=== PATIENT | female | born 1970 | race Caucasian/White ===

== ENCOUNTER 2017-03-15 16:35 | Emergency (ER) | payer BC ==
[2017-03-15 17:00] VITALS: BP 145/71; PULSE 73; RESP 16; TEMP 98.2
[2017-03-15] MEDS ORDERED: CEPHALEXIN 500MG STARTER PACK 4 CAP BTL PO STA (17:36)
--- NOTE | 2017-03-15 17:37 | ED ---
Wound/Laceration HPI - General Chief Complaint: Wound/Laceration Stated Complaint: left index finger injury Time Seen by Provider: 03/15/17 17:24 Source: patient, RN notes reviewed, old records reviewed Mode of arrival: ambulatory Limitations: no limitations - History of Present Illness Initial Comments: This is a 46 year old female, with CC left index finger swelling. PT states she was opening a box on friday when she slipped and cut her finger, and since there has been swelling worsening pain with redness traveling up her hand. She reports that the cut was very superficial, but thinks there is now an infection within the finger. She reports she has full range of motion. Denies any peripheral paresthesias. She denies any fever or chills. - Related Data Previous Rx's Medication Instructions Recorded Cephalexin [Keflex] 500 mg PO Q6H #40 cap 03/15/17 Allergies Allergy/AdvReac Type Severity Reaction Status Date / Time No Known Allergies Allergy Verified 03/15/17 17:00 Review of Systems ROS Statement: Those systems with pertinent positive or pertinent negative responses have been documented in the HPI. ROS Other: All systems not noted in ROS Statement are negative. Past Medical History Past Medical History: No Reported History Additional Past Medical History / Comment(s): currently has fluid around heart, Acute T6 herpes zoster lesion 09/12/2015 left side-shingles currently healed, steroids September 2015 History of Any Multi-Drug Resistant Organisms: None Reported Past Surgical History: Section, Hysterectomy Additional Past Surgical History / Comment(s): knee surgery,wisdom teeth, pericardial centesis Past Anesthesia/Blood Transfusion Reactions: No Reported Reaction Additional Past Anesthesia/Blood Transfusion Reaction / Comment(s): no hx blood transfusion Past Psychological History: No Psychological Hx Reported Smoking Status: Current every day smoker Past Alcohol Use History: Rare Past Drug Use History: None Reported - Past Family History Father Family Medical History: COPD Additional Family Medical History / Comment(s): SCLERADERMA,EMPHYSEMA, GOUT Mother Family Medical History: Diabetes Mellitus, Hypertension, Osteoarthritis (OA), Rheumatoid Arthritis (RA) Additional Family Medical History / Comment(s): Pericarditis Sister(s) Additional Family Medical History / Comment(s): GRAVES DISEASE AND HER SON HAS ADDISONS DISEASE General Exam - General Exam Comments Initial Comments: Well appearing 46 year old female, no distress. Limitations: no limitations General appearance: alert Head exam: Present: atraumatic, normocephalic, normal inspection Eye exam: Present: normal appearance, PERRL, EOMI. Absent: scleral icterus, conjunctival injection, periorbital swelling ENT exam: Present: normal exam, mucous membranes moist Neck exam: Present: normal inspection. Absent: tenderness, meningismus, lymphadenopathy Respiratory exam: Present: normal lung sounds bilaterally. Absent: respiratory distress, wheezes, rales, rhonchi, stridor Cardiovascular Exam: Present: regular rate, normal rhythm, normal heart sounds. Absent: systolic murmur, diastolic murmur, rubs, gallop, clicks GI/Abdominal exam: Present: soft, normal bowel sounds. Absent: distended, tenderness, guarding, rebound, rigid Extremities exam: Present: normal inspection, full ROM, normal capillary refill. Absent: tenderness, pedal edema, joint swelling, calf tenderness Left Upper Arm exam: Present: normal inspection, full ROM Elbow exam: Present: normal inspection, full ROM Forearm Wrist exam: Present: normal inspection, full ROM Hand Wrist exam: Present: tenderness, swelling, erythema (tender, swelling and erythema from index finger. Superifical laceration that is closed and well healed. Patient has some minor lymphangitic streaking up hand and forearm. ). Absent: normal inspection Neuro motor exam: Present: wrist extension intact, thumb opposition intact, thumb IP flexion intact, thumb adduction intact, fingers 2-5 abduction intact Vascular: Present: normal capillary refill Back exam: Present: normal inspection Neurological exam: Present: alert, oriented X3, CN II-XII intact Psychiatric exam: Present: normal affect, normal mood Skin exam: Present: warm, dry, intact, normal color. Absent: rash Course Vital Signs 03/15/17 16:57 Temperature 98.2 F Pulse Rate 73 Respiratory 16 Rate Blood Pressure 145/71 O2 Sat by Pulse 99 Oximetry Medical Decision Making - Medical Decision Making This is a 46 year old female, with CC left index finger swelling. PT states she was opening a box on friday when she slipped and cut her finger, and since there has been swelling worsening pain with redness traveling up her hand. She reports that the cut was very superficial, but thinks there is now an infection within the finger.Patient appears to have cellulitis of left index finger and evidence lymphangitis. Patient will be dsicharged with antibiotic, and follow up with PCP. REturn parameters discussed. Disposition Clinical Impression: Cellulitis of left index finger, Lymphangitis Disposition: HOME SELF-CARE Condition: Good Instructions: Lymphangitis (ED) Additional Instructions: Patient advised to follow-up with her primary care provider. Take antibiotic as prescribed. Return to emergency department if any alarming signs symptoms currently including severe swelling into the finger or the hand. Don't miss a dose of antibiotic. Prescriptions: Cephalexin [Keflex] 500 mg PO Q6H #40 cap Referrals: Aline Gomes MD [Primary Care Provider] - 1-2 days Time of Disposition: 17:35
--- NOTE | 2017-03-18 05:26 | CDI ---
Documentation Clarification OP Dear Karen Mortensen PA-C Please do addendum to ED report that provides Need ER H &P,Physical Exam Thank you, Marifer Mitchell Diesel Powerplant Mechanic If you have any questions, please contact [employer] at [phone] [facility]
== END 2017-03-15 17:44 | disposition home or self-care (01) ==
LOC: EC 16:35
DX: L03.012 Cellulitis of left finger (principal); S61.211S Laceration without foreign body of left index finger without damage to nail, sequela; F17.200 Nicotine dependence, unspecified, uncomplicated; W45.8XXS Other foreign body or object entering through skin, sequela
CPT/HCPCS: 99283

== ENCOUNTER → 2017-04-04 | Outpatient (CLI) | payer BC ==
--- NOTE | 2017-04-04 10:54 | MM ---
Reason for exam: clinical finding. Last mammogram was performed 2 years and 3 months ago. History: Family history of breast cancer in maternal aunt and breast cancer in maternal cousin. Physical Findings: Nurse did not find any significant physical abnormalities on exam. MG 3D Diag Mammo W/Cad KEVEN Bilateral CC and MLO view(s) were taken. Prior study comparison: December 19, 2014, bilateral MG diagnostic mammo w CAD KEVEN. The breast tissue is heterogeneously dense. This may lower the sensitivity of mammography. Finding: There is a suspicious, equal, spiculated architectural distortion located 5 cm from the nipple in the anterior position of the left breast. New finding since December 19, 2014. These results were verbally communicated with the patient and result sheet given to the patient on 04/04/17. ASSESSMENT: Incomplete: need additional imaging evaluation, BI-RAD 0 RECOMMENDATION: Ultrasound of the left breast.
--- NOTE | 2017-04-04 10:56 | USB ---
Reason for exam: additional evaluation requested from abnormal screening. History: Family history of breast cancer in maternal aunt and breast cancer in maternal cousin. US Breast Limited LT Left breast ultrasound demonstrates a 1.2 x 1.7 x 0.8cm irregular, spiculated, taller than wide, solid, hypoechoic, vascular lesion at 12 o'clock at dimpling. These results were verbally communicated with the patient and result sheet given to the patient on 04/04/17. ASSESSMENT: Highly suggestive of malignancy, BI-RAD 5 RECOMMENDATION: Surgical consultation and ultrasound core biopsy of the left breast. Called Dr. Gomes with mammographic findings and has scheduled an appointment for the patient for 04/04/17 at 10:[address] Estes. Biopsy scheduled for 04/09/17 at 12:20. PRELIMINARY REPORT CALLED AND FAXED TO DR. ESTES ON 04/04/17.
== END | disposition home or self-care (01) ==
LOC: RADMAMWWP 08:46
PROVIDERS: ATTEND Family Medicine
DX: R92.8 Other abnormal and inconclusive findings on diagnostic imaging of breast (principal); R92.2 Inconclusive mammogram
CPT/HCPCS: 76642; G0204; G0279

== ENCOUNTER → 2017-04-09 | Day surgery (SDC) | payer BC ==
[2017-04-09 12:22] VITALS: RESP 16; BMI 41.1
[2017-04-09 13:45] VITALS: BP 117/78; PULSE 62; TEMP 97.7
--- NOTE | 2017-04-09 14:13 | USB ---
EXAMINATION TYPE: US biopsy breast VAD LT, MG diagnostic mammo LT wo CAD DATE OF EXAM: 04/09/2017 CLINICAL HISTORY: R92.8 Abn mammogram and ultrasound. TECHNIQUE: Ultrasound guided core biopsy of left breast with clip placement and follow-up two-view mammogram. COMPARISON: Left breast mammogram and ultrasound April 04, 2017 and older mammograms. FINDINGS: The procedure of ultrasound guided core biopsy was explained to the patient. Benefits, alternatives, and risks were discussed. An informed consent was then obtained. The patient was placed in supine positioning for imaging and for the procedure. Preprocedure imaging redemonstrates irregular shadowing hypoechoic lesion 12:00 position in left breast. I had technologist scan axillary region to assess for possible second biopsy, no suspicious adenopathy is seen. Benign appearing lymph nodes are identified. The overlying skin was prepped and draped in usual sterile fashion. Lidocaine was used as anesthetic into the skin. Lidocaine with epinephrine is used as anesthetic into the deeper tissue up to area of concern in the left breast. Under ultrasound guidance, a 12-gauge vacuum assisted biopsy gun device was used to obtain 4 core samples. Following this, a biopsy clip was left in lesion. The patient tolerated the procedure well without any immediate complication. The patient was kept in the radiology department for short stay after the procedure and then discharged home in stable condition. Postprocedure mammogram shows clip appeared to correspond to area of mammogram concern, spiculated lesion is less well-seen without 3-D imaging. IMPRESSION: Successful, uncomplicated ultrasound guided core biopsy of area of concern in the left breast, full pathology results to follow. Very high index of suspicion noted at time of procedure. 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 SEE SURGICAL PATHOLOGY CANCER CASE SUMMARY Recommendation Surgical consult of the left breast. ADRIEN
== END ==
LOC: RADUSWWP 12:05
PROVIDERS: ATTEND Surgery
DX: D05.12 Intraductal carcinoma in situ of left breast (principal)
CPT/HCPCS: 88305; 19083; G0206; A4648; J2001

== ENCOUNTER 2017-06-03 09:56 | Day surgery (SDC) | payer BC ==
[2017-05-30 09:30] VITALS: BMI 41.1
[~2017-06-03 09:56] MED LIST: ALPRAZolam 0.5 MG TAB PO PRN; DEXAMETHASONE SOD PHOSPHATE 10 MG/ML 1 ML VIAL IV ONE; HEPARIN SODIUM,PORCINE 5,000 UNIT/ML 1 ML VIAL SQ ONE; LACTATED RINGERS 1,000 ML IV SCH; ONDANSETRON 4 MG/2 ML VIAL IVP ONE; Pre Op ABX Message 1 EACH MISC MISCELLANE ONE
[2017-06-03] MEDS ORDERED: ALPRAZolam 0.5 MG TAB PO ONE (10:40)
[2017-06-03] MEDS: LACTATED RINGERS 1,000 ML IV SCH ×2 (10:40→21:27)
[2017-06-03] MEDS ORDERED: LIDOCAINE 1% INJ 10MG/ML (20 ML MDV) SQ ONE (11:28)
[2017-06-03] MEDS ORDERED: SODIUM BICARB 4% 5 ML VIAL (0.48 MEQ/ML) MISCELLANE ONE (11:49)
[2017-06-03] MEDS ORDERED: HEPARIN SODIUM,PORCINE 5,000 UNIT/ML 1 ML VIAL SQ ONE (13:59)
--- NOTE | 2017-06-03 14:02 | NM ---
EXAMINATION TYPE: NM sentinel node injection DATE OF EXAM: 06/03/2017 COMPARISON: 04/09/2017 and 04/04/2017 HISTORY: 46 year-old female with biopsy-proven left breast cancer TECHNIQUE AND FINDINGS: The procedure of sentinel lymph node injection was explained to the patient. The benefits, alternatives, and risks were discussed. An informed consent was then obtained. Overlying skin is cleaned with sterile alcohol. Lidocaine buffered with bicarbonate was used as anes thetic into the skin and subcutaneous tissue surrounding the nipple. Following this, 539 uCi Tc 99m Filtered Sulfur Colloid was injected into 4 equivalent doses at 12, 3, 6, and 9:00 position surroundi ng the left nipple intradermally. The injection sites were massaged by nuclear reactor operator for 10 minutes after injection. T he patient tolerated the procedure well without any immediate complication. The patient was kept in the radiology department for short stay after the procedure and then taken to surgery for surgical pr ocedure what is presumed intraoperative gamma probe will be used for sentinel lymph node detection. IMPRESSION: Left breast radiotracer injection for sentinel node localization as above.
[2017-06-03] MEDS ORDERED: fentaNYL (PF) 50 MCG/ML 2 ML AMP ONE (14:34)
[2017-06-03] MEDS ORDERED: HYDROmorphone (PF) 1 MG/ML ONE (14:34)
[2017-06-03] MEDS ORDERED: ceFAZolin 1,000 MG VIAL ONE (14:34)
[2017-06-03] MEDS ORDERED: LIDOCAINE 1% INJ 10MG/ML (20 ML MDV) ONE (14:34)
[2017-06-03] MEDS ORDERED: PROPOFOL 10 MG/ML 20 ML VIAL IV ONE (14:34)
[2017-06-03] MEDS ORDERED: SUCCINYLCHOLINE CHLORIDE 100 MG/5 ML SYR IV ONE (14:34)
[2017-06-03] MEDS ORDERED: MIDAZOLAM 2 MG/2 ML VIAL ONE (14:34)
[2017-06-03] MEDS ORDERED: SODIUM CHLORIDE 0.9% 50 ML with ceFAZolin 2,000 MG IV ONE ×2 (14:51)
[2017-06-03] MEDS ORDERED: LACTATED RINGERS 1,000 ML IV ONE (15:33)
[2017-06-03] MEDS ORDERED: METHYLENE BLUE 10 MG/ML (10 ML VIAL) INJ ONE (15:38)
--- NOTE | 2017-06-03 17:04 | MM ---
EXAMINATION TYPE: MG pre op needle loc LT, MG surgical specimen LT DATE OF EXAM: 06/03/2017 COMPARISON: 04/04/2017 CLINICAL HISTORY: 46 year-old female with biopsy-proven left breast cancer TECHNIQUE: Needle localization with wire placement and surgical excision of area of concern in the left breast. FINDINGS: The procedure of needle localization with wire placement and than surgical excision was explained to the patient. Benefits, alternatives, and risks were discussed. An informed consent was then obtained. The shortest pathway for procedure was chosen. Shortest pathway was a superior approach. The overlying skin was prepped and draped in usual sterile fashion. Lidocaine was used as anesthetic into the skin and subcutaneous tissue up to the level of area of concern. A 7 cm Kopans needle was used. It was placed via a superior approach under mammographic guidance. Subsequent 90 degrees mammogram show the needle to be in satisfactory position relative to the targeted area. At this point, wire was placed and the needle was withdrawn. The wire was fixed to patient's skin. Images were marked for surgeon. The patient tolerated the procedure well without any immediate complication. The patient was kept in the radiology department for short stay after the procedure and then taken to surgery for surgical excision. The wire, targeted microclip, and some associated density are identified in specimen mammogram. The patient was kept in hospital for short stay after the procedure and then discharged home in stable condition. IMPRESSION: Successful, uncomplicated needle localization with wire placement and surgical excision of biopsy-proven left breast cancer. Full pathology results to follow. Pathology Results: Malignant A. 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 DCIS AND INVASIVE CARCINOMA CLOSELY APPROXIMATE THE MEDIAL MARGIN, CANNOT EXCLUDE INVOLVEMENT OF THE MARGIN. SEE SURGICAL PATHOLOGY CANCER CASE SUMMARY AND COMMENT. B. BREAST, LEFT, EXTERNAL MEDIAL MARGIN, EXCISION: BENIGN BREAST WITH FIBROCYSTIC CHANGES. C. BREAST, LEFT, NEW INFERIOR MARGIN, EXCISION: BENIGN BREAST WITH FIBROCYSTIC CHANGES. D. SENTINEL LYMPH NODE #1, BIOPSY: LYMPH NODE POSITIVE FOR METASTASIS. SIZE OF METASTATIC DEPOSIT MEASURES 7 MM. E. SENTINEL LYMPH NODE #2, BIOPSY: LYMPH NODE POSITIVE FOR METASTASIS. SIZE OF METASTATIC DEPOSIT MEASURES 5 MM. F. SENTINEL LYMPH NODE #3, BIOPSY: LYMPH NODE NEGATIVE FOR METASTASIS. CK7 AND BOAZ IMMUNOPEROXIDASE STAINS ARE CONFIRMATORY (CONTROLS APPROPRIATE). G. SENTINEL LYMPH NODE #4, BIOPSY: TWO LYMPH NODES NEGATIVE FOR METASTASIS. CK7 AND BOAZ IMMUNOPEROXIDASE STAINS ARE CONFIRMATORY (CONTROLS APPROPRIATE). H. SENTINEL LYMPH NODE #5 AND 6, BIOPSY: THREE TOTAL LYMPH NODES, ONE NODE POSITIVE FOR METASTASIS. SIZE OF METASTATIC DEPOSIT MEASURES 5 MM. CK7 AND BOAZ IMMUNOPEROXIDASE STAINS ARE CONFIRMATORY (CONTROLS APPROPRIATE). I. SENTINEL LYMPH NODE #7, BIOPSY: LYMPH NODE NEGATIVE FOR METASTASIS. CK7 AND BOAZ IMMUNOPEROXIDASE STAINS ARE CONFIRMATORY (CONTROLS APPROPRIATE). J. LEFT AXILLARY CONTENTS: LYMPH NODE NEGATIVE FOR METASTASIS. Recommendation Surgical consult of the left breast. Appropriate surgical and oncologic management. MTDD
--- NOTE | 2017-06-03 17:07 | P.OP ---
Date of Procedure: 06/03/17 Preoperative Diagnosis: Left breast cancer Postoperative Diagnosis: Same Procedure(s) Performed: Left breast lumpectomy with placement of BioSorb, left sentinel node biopsy 7 sentinel nodes removed Anesthesia: GUNJAN Surgeon: Yaima Estes Estimated Blood Loss (ml): 50 IV fluids (ml): 800 Pathology: other (Left breast lumpectomy, left sentinel nodes) Condition: stable Disposition: PACU Indications for Procedure: Left breast core biopsy positive for invasive breast cancer Operative Findings: . Dense tissue in left breast, non-worrisome left axillary adenopathy Description of Procedure: Marilu Richey is a 46-year-old female who presented with an area of dimpling in the left breast. A core biopsy was obtained which was positive for invasive ductal carcinoma. As well as a focus of ductal carcinoma in situ. After discussion the patient opted for a lumpectomy with sentinel node biopsy possible axillary node dissection. The patient was brought to the operating room and following induction of general anesthesia 6 mL of half-strength methylene blue were injected in the periareolar area and this area was massaged. The breast and axilla were then prepped and draped in a sterile fashion. The breast was approached first. An incision was made and carried around the area of the needle local tissue. The tissue was very dense. Additional margins were obtained immediately posteriorly and inferiorly. These margins were painted appropriately and the specimen was sent for radiographic evaluation. Confirmation that the area of concern had been dissected was obtained. The wound was then packed and instrument and gloves were changed The neoprobe was utilized to help identify where incision should be made in the left axilla. An area of increased activity was noted an incision was made and carried through the skin and subcutaneous tissue to the area of the axilla. Upon entering the axilla 7 sentinel lymph nodes were identified. 10 seconds count were as follows: #1 node 1698 #2 node 2175 #3 node 502 #4 node 736 #5 and 6 node 1245 these nodes were removed and together #7 node 539 Many of these nodes were also blue secondary to the methylene blue dye Intraoperative conversation was had with pathology and none of these are particularly suspicious therefore no frozen sections were obtained. At the termination of removal of sentinel nodes no suspicious adenopathy was palpable. Background count for 10 seconds after removal of the sentinel lymph nodes was 12 After we were sure that hemostasis was attained the deep tissues were closed with 3-0 Vicryl suture. A CURTIS drain was placed. The skin was closed using 4-0 Monocryl. The area of the breast incision was then again addressed. This area was irrigated and no evidence of bleeding was identified. A 3 x 4 Biozorb was placed and secured using a 3-0 Vicryl suture. The deep tissues were closed with 3-0 Vicryl. The skin was then closed with 4-0 Monocryl. Steri-Strips were applied to each site. The patient tolerated the procedure in stable condition. All instrument and sponge counts were correct at the end of the case.
[2017-06-03] MEDS ORDERED: HYDROmorphone 1 MG/ML 1 ML SYRINGE IV PRN (17:08)
[2017-06-03] MEDS ORDERED: NALOXONE 0.4 MG/ML 1 ML VIAL IV PRN (17:08)
[2017-06-03] MEDS ORDERED: ONDANSETRON 4 MG/2 ML VIAL IVP PRN (17:08)
[2017-06-03] MEDS ORDERED: HYDROcodone/APAP 5-325MG 1 EACH TAB PO PRN (17:08)
[2017-06-03] MEDS ORDERED: diphenhydrAMINE 50 MG/ML 1 ML VIAL IVP ONE (17:35)
[2017-06-03] MEDS ORDERED: PROMETHAZINE INJ 25 MG/ML 1 ML VIAL IVPB ONE (18:18)
[2017-06-03] MEDS: DEXTROSE 5%-0.45% NACL 1,000 ML IV SCH (21:28)
[2017-06-04] MEDS: HEPARIN SODIUM,PORCINE 5,000 UNIT/ML 1 ML VIAL SQ SCH ×2 (00:03→09:34)
[2017-06-04] MEDS: DEXTROSE 5%-0.45% NACL 1,000 ML IV SCH (06:54)
[2017-06-04] MEDS ORDERED: PANTOPRAZOLE 40 MG/10 ML VIAL IV SCH (09:00)
--- NOTE | 2017-06-04 09:36 | P.PN ---
Subjective Progress Note Date: 06/04/17 Patient is postop day #1 lumpectomy and sentinel node biopsy At this time she has no complaints or CURTIS drainage is serous she is doing well and is to be discharged home Objective - Vital Signs Vital signs: Vital Signs Temp 97 F L 06/04/17 06:56 Pulse 81 06/04/17 06:56 Resp 18 06/04/17 06:56 BP 119/62 06/04/17 06:56 Pulse Ox 96 06/04/17 06:56 Intake & Output 06/03/17 06/04/17 06/04/17 18:59 06:59 18:59 Intake Total 1600 150 Output Total 50 1350 Balance 1550 -1200 Intake: IV 1600 Oral 150 Output: Drainage 50 Left Breast 50 Urine 1300 Estimated Blood Loss 50 Other: Voiding Method Toilet - Constitutional General appearance: Present: obese - Respiratory Respiratory: bilateral: CTA - Cardiovascular Rhythm: regular Heart sounds: normal: S1, S2 - Gastrointestinal General gastrointestinal: Present: soft - Psychiatric Psychiatric: Present: A&O x's 3, appropriate affect, intact judgment & insight Assessment and Plan Assessment: Impression/plan: 1. Patient postop day #1 lumpectomy and sentinel node biopsy 2. Patient doing well at this time Plan: 1. Discharge home await pathology results 2. Follow-up with Dr. Carrera next week
--- NOTE | 2017-06-04 09:38 | P.DS ---
Providers Attending physician: Yaima Estes Consults: 06/03/17 17:11 Consult Physician Routine Consulting Provider: Aline Gomes Consult Reason/Comments: medical managment Do you want consulting provider notified?: Yes Primary care physician: Aline Gomes Plan - Discharge Summary New Discharge Prescriptions: No Action No Known Home Medications [No Known Home Medications] Discharge Medication List No Known Home Medications [No Known Home Medications] 04/09/17 [History] Follow up Appointment(s)/Referral(s): Yaima Estes MD [STAFF PHYSICIAN] - 1 Week Activity/Diet/Wound Care/Special Instructions: Patient may shower after [address] if taking pain medication do not drive for seen by Dr. Carrera No heavy lifting over 10 pounds wear bra at all times Discharge Disposition: HOME SELF-CARE
[2017-06-04 10:11] VITALS: BP 112/70; PULSE 73; RESP 16; TEMP 97.6
== END 2017-06-04 12:00 | disposition home or self-care (01) ==
LOC: OR 09:56 → 6PED 17:05 → OR 06-04 12:00
PROVIDERS: ATTEND Surgery
DX: D05.12 Intraductal carcinoma in situ of left breast (principal); C77.3 Secondary and unspecified malignant neoplasm of axilla and upper limb lymph nodes; N60.12 Diffuse cystic mastopathy of left breast; Z87.891 Personal history of nicotine dependence; C50.912 Malignant neoplasm of unspecified site of left female breast; I31.3 Pericardial effusion (noninflammatory)
CPT/HCPCS: 19301; 38500; 88342; 88307; 88341; 76098; 19281; 38792; A4648; A9541; J2250; J1200; J1644 ×2; J1100; J2550; J2405; J0690 ×2; J2001; Q9968; J3010; J1170; J0330; J2704

== ENCOUNTER → 2017-07-10 | Outpatient (CLI) | payer BC ==
--- NOTE | 2017-07-10 10:10 | CT ---
EXAMINATION TYPE: CT ChestAbdPelvis w con DATE OF EXAM: 07/10/2017 COMPARISON: Chest 10/26/2015 and mammogram 04/09/2017 HISTORY: 46-year-old female with left breast Cancer, Pre Chemo TECHNIQUE: Contiguous axial scanning of the chest, abdomen, and pelvis performed with IV Contrast, pa tient injected with 100 ml mL of Omnipaque 300. Delayed images through the kidneys were obtained. Cor onal/sagittal reconstructions performed. CT DLP: 2233 mGycm Automated exposure control for dose reduction was used. FINDINGS: Chest: Postsurgical changes within the left breast with a 4.5 cm seroma/lumpectomy cavity with associated rangel rgical clips. Additional postsurgical changes of left axillary node dissection. Right anterior chest wall injection port with catheter tip at the cavoatrial junction. Heart is normal size with residual trace pericardial effusion, improved from 10/26/2015. Aorta is normal caliber with conventional arch vessel branching anatomy. No axillary, internal mammary chain, mediastinal, or hilar lymphadenopathy by CT size criteria. No consolidation or pleural effusion. No suspicious pulmonary nodule or mass. ABDOMEN: Tiny hiatal hernia. No focal liver lesion or biliary ductal dilatation. Portal venous system is patent. Gallbladder, adrenal glands, kidneys, spleen with hilar splenule, and pancreas appear within normal l imits. There is a bulging omental fat-containing ventral abdominal wall hernia in the infrasternal region me asuring 3.5 cm wide, probable incisional hernia. Refer to axial image 48 and sagittal image 82. No mesenteric or retroperitoneal lymphadenopathy. No dilated small bowel, free fluid, or free air. No rmal appendix. Mild stool burden without pericolonic inflammatory change. Occasional distal colonic diverticula. Pelvis: Bladder is urine distended. Uterus is either small or surgically absent and can be correlated clinica lly. Multiple pelvic phleboliths. Both ovaries are visualized. No abnormal fluid collection in the pe lvis or pelvic lymphadenopathy. Bones: There seems to be a right-sided L5 pars defects probably a congenital basis with fusion of the right L4-L5 facet joints. The disc/endplate degenerative change anteriorly at T10-T11. No osseous destructi ve process. IMPRESSION: 1. POSTSURGICAL CHANGES OF LEFT BREAST LUMPECTOMY AND AXILLARY NODE DISSECTION. A 4.5 CM RESIDUAL SER FABIEN/LUMPECTOMY CAVITY REMAINS. 2. NO CT EVIDENCE FOR METASTATIC DISEASE TO THE CHEST, ABDOMEN, OR PELVIS. 3. TINY HIATAL HERNIA AND SMALL 3.5 CM WIDE UPPER ABDOMINAL VENTRAL ABDOMINAL WALL HERNIA. 4. INCIDENTAL RIGHT L5 PARS DEFECT AND FUSION OF THE RIGHT L4-L5 FACET JOINTS. FINDINGS MAY BE ON A C ONGENITAL BASIS.
--- NOTE | 2017-07-10 14:13 | NM ---
EXAMINATION TYPE: NM bone scan whole body DATE OF EXAM: 07/10/2017 COMPARISON: Correlation CT exam dated HISTORY: 46-year-old female history of left breast cancer in March 2017. Technique: Delayed whole-body scanning was performed following the injection of 29.9 mCi Tc 99m MDP. Images acquired 3.5 hours post injection. FINDINGS: There is no suspicious accumulation of tracer throughout the osseous structures to suggest osseous me tastatic disease. There is mild degenerative tracer activity at the shoulders, left knee, and more pronounced at the le ft first MTP joint. Additional tracer activity at the inferior left calcaneus. IMPRESSION: 1. No scintigraphic evidence for osseous metastatic disease. 2. Scattered degenerative tracer activity, most pronounced at the left first MTP joint and then at th e left knee. 3. Additional focal increased activity at the inferior left calcaneus could reflect plantar fasciitis . Clinically correlate.
--- NOTE | 2017-07-11 11:28 | ECHOF ---
Referral Reason:C50.812 Breast Cancer, Z01.818 Pre-Chemo MEASUREMENTS -------- HEIGHT: 162.6 cm WEIGHT: 11.3 kg BP: IVSd: 1.2 cm (0.6 - 1.1) LVIDd: 4.5 cm (3.9 - 5.3) LVPWd: 1.3 cm (0.6 - 1.1) IVSs: 1.5 cm LVIDs: 4.2 cm LVPWs: 1.3 cm Ao Diam: 2.5 cm (2.0 - 3.7) AV Cusp: 1.9 cm (1.5 - 2.6) LA Diam: 3.9 cm (2.7 - 3.8) MV EXCURSION: 16.594 mm (> 18.000) MV EF SLOPE: 103 mm/s (70 - 150) EPSS: 0.4 cm MV E Elder: 0.93 m/s MV DecT: 256 ms MV A Elder: 0.83 m/s MV E/A Ratio: 1.12 RAP: 5.00 mmHg RVSP: 14.03 mmHg FINDINGS -------- Sinus rhythm. Morbid Obesity The left ventricular size is normal. There is mild concentric left ventricular hypertrophy. Overa ll left ventricular systolic function is normal with, an EF between 55 - 60 %. The right ventricle is normal in size. The left atrial size is normal. The right atrial size is normal. The aortic valve was not well visualized. Mild mitral regurgitation is present. Mild tricuspid regurgitation present. There is no evidence of pulmonary hypertension. The right v entricular systolic pressure, as measured by Doppler, is 14.03mmHg. Trace/mild (physiologic) pulmonic regurgitation. The aortic root size is normal. There is a small, generalized pericardial effusion present. CONCLUSIONS -------- 1. Morbid Obesity 2. The left ventricular size is normal. 3. There is mild concentric left ventricular hypertrophy. 4. Mild mitral regurgitation is present. 5. Mild tricuspid regurgitation present. 6. There is no evidence of pulmonary hypertension. 7. The right ventricular systolic pressure, as measured by Doppler, is 14.03mmHg. 8. Trace/mild (physiologic) pulmonic regurgitation. 9. The aortic root size is normal. 10. There is a small, generalized pericardial effusion present. SERVICE PROVIDER: Whitney Harding RDCS
== END | disposition home or self-care (01) ==
LOC: RADCTMAIN 08:23
PROVIDERS: ATTEND Internal Medicine Hematology & Oncology
DX: Z01.818 Encounter for other preprocedural examination (principal); C50.812 Malignant neoplasm of overlapping sites of left female breast; K44.9 Diaphragmatic hernia without obstruction or gangrene; K46.9 Unspecified abdominal hernia without obstruction or gangrene; E66.01 Morbid (severe) obesity due to excess calories; I07.1 Rheumatic tricuspid insufficiency; I34.0 Nonrheumatic mitral (valve) insufficiency; I37.1 Nonrheumatic pulmonary valve insufficiency; I31.3 Pericardial effusion (noninflammatory); Z98.890 Other specified postprocedural states
CPT/HCPCS: 93306; 71260; 74177; 78306; A9503; Q9967; J1642

== ENCOUNTER → 2017-08-26 | Outpatient (CLI) | payer BC, OTHER ==
--- NOTE | 2017-08-26 09:56 | USB ---
Reason for exam: clinical finding. History: Patient has history of breast cancer at age 46. Family history of breast cancer in maternal aunt and breast cancer in maternal cousin. Malignant MG pre op needle loc LT of the left breast, June 03, 2017. Lumpectomy of the left breast, June 03, 2017. Malignant US biopsy breast VAD LT of the left breast, April 09, 2017. Indicated problem(s): palpable abnormality and pain in the left breast. Physical Findings: Nurse Summary: palpable lump 1 o'clock with pain left breast (nurse ms). US Breast LT Left breast ultrasound includes all four quadrants, the retroareolar region and axilla. Finding demonstrates moderate overlying subcutaneous edema with ill defined thin walled fluid collection at site of lumpectomy at 12-1 o'clock, cannot rule out infection at this time. Compared with CT CAD 07/10/17. These results were verbally communicated with the patient and result sheet given to the patient on 08/26/17. ASSESSMENT: Probably benign, BI-RAD 3 RECOMMENDATION: Clinical management of the left breast. Manage patient on a clinical basis.
== END | disposition home or self-care (01) ==
LOC: RADUSWWP 08:07
PROVIDERS: ATTEND Internal Medicine Hematology & Oncology
DX: N64.4 Mastodynia (principal); Z85.3 Personal history of malignant neoplasm of breast

== ENCOUNTER 2017-12-30 06:53 | Emergency (ER) | payer BC, OTHER ==
[2017-12-30 07:04] VITALS: BP 144/96; PULSE 86; RESP 16; TEMP 98.5
--- NOTE | 2017-12-30 08:12 | ED ---
ENT HPI - General Chief complaint: Dental/Oral Stated complaint: Ear/Dental Pain Time Seen by Provider: 12/30/17 08:05 Source: patient, RN notes reviewed, old records reviewed Mode of arrival: ambulatory Limitations: no limitations - History of Present Illness Initial comments: This patient's a 47-year-old female presents emergency Department chief complaint of left ear pain for the past 3-4 days. She states that she also has lower left tooth pain. She is planning to have tooth #19 pulled. She has a fractured tooth. She was started on penicillin by her dentist. Patient states she's been taking his medications. She reports that she now has pain shooting up to the ear. She reports some swelling over the left side of her face. She denies any fever or chills. She recently was off of chemotherapy. Again she is scheduled to have tooth #19 removed in one week., Or foul odor or taste in her mouth. - Related Data Home Medications Medication Instructions Recorded Confirmed Esomeprazole Magnesium [NexIUM] 20 mg PO DAILY 08/06/17 12/24/17 Ondansetron HCl [Zofran] 4 mg PO DAILY PRN 08/20/17 12/24/17 Previous Rx's Medication Instructions Recorded Acetaminophen with Codeine 1 tab PO Q4H PRN 3 Days #18 tab 12/30/17 [Tylenol w/codeine #3] Clindamycin [Cleocin] 450 mg PO TID 7 Days capsule 12/30/17 Allergies Allergy/AdvReac Type Severity Reaction Status Date / Time No Known Allergies Allergy Verified 12/30/17 07:05 Review of Systems ROS Statement: Those systems with pertinent positive or pertinent negative responses have been documented in the HPI. ROS Other: All systems not noted in ROS Statement are negative. Past Medical History Past Medical History: Cancer, Vascular Disorder Additional Past Medical History / Comment(s): hx shingles. Hx of Pericardial effusion, cancer lt breast dx 03/30 stage 3 History of Any Multi-Drug Resistant Organisms: None Reported Past Surgical History: Section, Hysterectomy, Orthopedic Surgery Additional Past Surgical History / Comment(s): knee surgery,wisdom teeth, pericardiocentesis Past Anesthesia/Blood Transfusion Reactions: No Reported Reaction Additional Past Anesthesia/Blood Transfusion Reaction / Comment(s): no hx blood transfusion Past Psychological History: No Psychological Hx Reported Smoking Status: Former smoker - Past Family History Father Family Medical History: COPD Additional Family Medical History / Comment(s): SCLERADERMA,EMPHYSEMA, GOUT Mother Family Medical History: Diabetes Mellitus, Hypertension, Osteoarthritis (OA), Rheumatoid Arthritis (RA) Additional Family Medical History / Comment(s): Pericarditis Sister(s) Additional Family Medical History / Comment(s): GRAVES DISEASE AND HER SON HAS ADDISONS DISEASE General Exam - General Exam Comments Initial Comments: Is a 47-year-old female. Alert and oriented. No significant distress. General: Well appearing, well nourished, in no distress. Oriented x 3, normal mood and affect . Ambulating without difficulty. Skin: Good turgor, no rash, unusual bruising or prominent lesions Hair: Normal texture and distribution. HEENT: Head: Normocephalic, atraumatic, no visible or palpable masses, depressions, or scaring. Eyes: Visual acuity intact, conjunctiva clear, sclera non-icteric, EOM intact, PERRL. Ears: EACs clear, TMs translucent & cone of light visualized. hearing intact. Nose: No external lesions, mucosa non-inflamed, septum and turbinates normal Mouth: Mucous membranes moist, no mucosal lesions. Teeth/Gums: Fractured tooth #19. No palpable abscess at this time. She does have some swelling over the left cheek. Pharynx: Mucosa non-inflamed, no tonsillar hypertrophy or exudate Neck: Supple, without lesions, bruits, or adenopathy, thyroid non-enlarged and non-tender Heart: No cardiomegaly or thrills; regular rate and rhythm, no murmur or gallop Lungs: Clear to auscultation and percussion Psychiatric: Oriented X3, intact recent and remote memory, judgment and insight , normal mood and affect. Limitations: no limitations Course Vital Signs 12/30/17 07:01 Temperature 98.5 F Pulse Rate 86 Respiratory 16 Rate Blood Pressure 144/96 O2 Sat by Pulse 98 Oximetry Medical Decision Making - Medical Decision Making Is a 47-year-old female presents emergency department today chief complaint of left ear pain and dental pain. Patient is daily previous normal, no effusion no drainage. She has a fracture to #19. She does have some swelling and tenderness over the tooth and swelling, left cheek. Patient has no palpable or drainable abscess at this time. At this time I will turn the antibiotic from penicillin that she's been on for 3 days to clindamycin. She does have an appointment with her dentist in 1 week to have the tooth removed. I believe the pain is likely referred. We'll discharge her with a short course of pain medication for the dental pain as well as changing the antibiotic. Discussed appropriate follow-up and return parameters were discussed. Disposition Clinical Impression: Tooth ache Disposition: HOME SELF-CARE Condition: Good Instructions: Toothache (ED) Additional Instructions: Patient advised to follow-up with your dentist. Take the medication as prescribed. Also take Motrin and decongestant medicine. Return to any alarming signs symptoms occur. Prescriptions: Acetaminophen with Codeine [Tylenol w/codeine #3] 1 tab PO Q4H PRN 3 Days #18 tab PRN Reason: Pain Clindamycin [Cleocin] 450 mg PO TID 7 Days capsule Is patient prescribed a controlled substance at d/c from ED?: Yes When asked, does pt state using other controlled substances?: No If prescribed controlled substance>3 days was MAPS reviewed?: Yes If opioid is for acute pain is fill amount 7 days or less?: Yes If Rx opioid, was Start Talking consent form obtained?: Yes Referrals: Aline Gomes MD [Primary Care Provider] - 1-2 days Time of Disposition: 08:16
== END 2017-12-30 08:35 | disposition home or self-care (01) ==
LOC: EC 06:53
DX: S02.5XXA Fracture of tooth (traumatic), initial encounter for closed fracture (principal); H92.02 Otalgia, left ear; Z87.891 Personal history of nicotine dependence; Z79.899 Other long term (current) drug therapy; Z85.3 Personal history of malignant neoplasm of breast; Z92.21 Personal history of antineoplastic chemotherapy; Z98.890 Other specified postprocedural states; X58.XXXA Exposure to other specified factors, initial encounter
CPT/HCPCS: 99283

== ENCOUNTER → 2018-01-02 | Outpatient (CLI) | payer BC, OTHER ==
--- NOTE | 2018-01-02 08:18 | BD ---
EXAMINATION TYPE: Axial Bone Density DATE OF EXAM: 01/02/2018 COMPARISON: NONE CLINICAL HISTORY: Height: 63.5 IN Weight: 250 LBS FRAX RISK QUESTIONS: Secondary Osteoporosis: 3. Menopause before 45: YES AGE 42 RISK FACTORS HISTORY OF: Active: YES Diet low in dairy products/other sources of calcium: YES Postmenopausal woman: AGE 42 MEDICATIONS: Additional Medications: ANTIBIOTICS, Additional History: BREAST CANCER WITH CHEMO AGE 46 EXAM MEASUREMENTS: Bone mineral densitometry was performed using the [employer] System. Bone mineral density as measured about the Lumbar spine is: ----- L1-L4(G/cm2): 1.261 T Score Values are as follows: ----- L2: 0.8 ----- L3: 0.4 ----- L4: 0.8 ----- L1-L4: 0.7 Bone mineral density BASELINE Bone mineral density about the R hip (g/cm2): 1.194 Bone mineral density about the L hip (g/cm2): 1.124 T Score values are as follows: -----R Neck: 1.1 -----L Neck: 0.6 -----R Total: 2.3 -----L Total: 1.7 Bone mineral density BASELINE IMPRESSION: Normal (Values between +1 and -1 indicate normal bone mass). Consider repeating this study in 5 year s or sooner if there is some new clinical indication. NOTE: T-SCORE=SD OF THE YOUNG ADULT MEAN.
== END | disposition home or self-care (01) ==
LOC: RADBDWWP 07:16
PROVIDERS: ATTEND Internal Medicine Hematology & Oncology
DX: Z78.0 Asymptomatic menopausal state (principal)
CPT/HCPCS: 77080

== ENCOUNTER → 2018-01-29 | Outpatient (CLI) | payer BC ==
[2018-01-29 16:22] LABS: Basophils % (A) 1 %; Eosinophils # (A) 0.2 k/uL (0-0.7); Eosinophils % (A) 3 %; HCT 35.7 % (34.0-46.0); HGB 12.2 gm/dL (11.4-16.0); Lymphocytes # (A) 1.2 k/uL (1.0-4.8); Lymphocytes % (A) 23 %; MCH 30.9 pg (25.0-35.0); MCHC 34.1 g/dL (31.0-37.0); MCV 90.6 fL (80.0-100.0); Mean Platelet Volume 7.1; Monocytes # (A) 0.4 k/uL (0-1.0); Monocytes % (A) 7 %; Neutrophils # (A) 3.4 k/uL (1.3-7.7); Neutrophils % (A) 64 %; Platelet Count 291 k/uL (150-450); RBC 3.93 m/uL (3.80-5.40); RDW 14.4 % (11.5-15.5); WBC 5.3 k/uL (3.8-10.6)
== END | disposition home or self-care (01) ==
LOC: LABPAT 15:23
PROVIDERS: ATTEND Surgery Plastic and Reconstructive Surgery
DX: Z01.812 Encounter for preprocedural laboratory examination (principal)
CPT/HCPCS: 85025

== ENCOUNTER 2018-01-30 05:46 | Day surgery (SDC) | payer BC, OTHER ==
[2018-01-26 12:39] VITALS: BMI 43.6
[~2018-01-30 05:46] MED LIST changes: -ALPRAZolam 0.5 MG TAB PO PRN; -DEXAMETHASONE SOD PHOSPHATE 10 MG/ML 1 ML VIAL IV ONE; -HEPARIN SODIUM,PORCINE 5,000 UNIT/ML 1 ML VIAL SQ ONE; +LIDOCAINE 1% 20 ML VIAL (10MG/ML) FOR IV START INTRADERMA PRN; -ONDANSETRON 4 MG/2 ML VIAL IVP ONE; -Pre Op ABX Message 1 EACH MISC MISCELLANE ONE; +ceFAZolin IN SWFI 2 GM/20 ML SYRINGE IVP ONE
--- NOTE | 2018-01-30 06:29 | P.GSHP ---
History of Present Illness H&P Date: 01/30/18 CHIEF COMPLAINT: Breast cancer. HISTORY OF PRESENT ILLNESS: The patient is a 47-year-old female diagnosed with invasive breast cancer. She had a Mediport placement. She presents for Port-A-Cath removal upon completion of her chemotherapy. PAST MEDICAL HISTORY: Breast cancer. PAST SURGICAL HISTORY: Breast biopsy. CURRENT MEDICATIONS: See list. ALLERGIES: See list. SOCIAL HISTORY: No active tobacco or alcohol use. FAMILY HISTORY: Noncontributory. REVIEW OF ORGAN SYSTEMS: CONSTITUTIONAL: Denies any fever or chills. Denies recent weight loss or weight gain. HEENT: Denies any trouble with vision, hearing or nosebleeds. No difficulty swallowing. BREASTS: Please see above. PHYSICAL EXAMINATION: Vital signs: Stable GENERAL: Well developed female and in no acute distress. Pleasant. HEENT: No sclera icterus. Extraocular movements grossly intact. Moist buccal mucosa. Head is atraumatic, normocephalic. Hears conversational speech. No nasal drainage. NECK: Supple without lymphadenopathy. No JV distention. CHEST: Non-labored respirations and equal bilateral excursions. CARDIOVASCULAR: Regular rate and rhythm. Palpable 2+ radial pulses. ABDOMEN: Nontender. MUSCULOSKELETAL: No clubbing, cyanosis or edema. NEUROLOGIC: No focal or lateralizing signs. PSYCH: Appropriate affect. Alert and oriented to person, place and time. ASSESSMENT: 1. Breast cancer. 2. Need for chemotherapeutic access. PLAN: 1. Agree with Port-A-Cath removal per patient's request. Past Medical History Past Medical History: Cancer, Vascular Disorder Additional Past Medical History / Comment(s): hx Breast Cancer 03/2017; Hx shingles. 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 History of Any Multi-Drug Resistant Organisms: None Reported Past Surgical History: Section, Hysterectomy, Orthopedic Surgery Additional Past Surgical History / Comment(s): knee surgery,wisdom teeth, pericardiocentesis; chemotherapy Past Anesthesia/Blood Transfusion Reactions: No Reported Reaction Additional Past Anesthesia/Blood Transfusion Reaction / Comment(s): no hx blood transfusion Smoking Status: Former smoker - Past Family History Father Family Medical History: COPD Additional Family Medical History / Comment(s): SCLERADERMA,EMPHYSEMA, GOUT Mother Family Medical History: Diabetes Mellitus, Hypertension, Osteoarthritis (OA), Rheumatoid Arthritis (RA) Additional Family Medical History / Comment(s): Pericarditis Sister(s) Additional Family Medical History / Comment(s): GRAVES DISEASE AND HER SON HAS ADDISONS DISEASE Medications and Allergies Home Medications Medication Instructions Recorded Confirmed Type Gabapentin [Neurontin] 100 mg PO HS 01/26/18 01/30/18 History Allergies Allergy/AdvReac Type Severity Reaction Status Date / Time No Known Allergies Allergy Verified 01/30/18 06:15
[2018-01-30 06:38] VITALS: TEMP 97.9
[2018-01-30] MEDS ORDERED: MIDAZOLAM 2 MG/2 ML VIAL ONE (07:03)
[2018-01-30] MEDS ORDERED: LIDOCAINE 1% INJ 10MG/ML (20 ML MDV) ONE (07:03)
[2018-01-30] MEDS ORDERED: KETAMINE 10 MG/ML 20 ML VIAL ONE (07:03)
[2018-01-30] MEDS ORDERED: PROPOFOL 10 MG/ML 20 ML VIAL IV ONE (07:03)
[2018-01-30] MEDS ORDERED: fentaNYL (PF) 50 MCG/ML 2 ML AMP ONE (07:03)
[2018-01-30] MEDS ORDERED: BUPIVACAINE (PF) 0.5% 30 ML VIAL SQ ONE (07:05)
[2018-01-30] MEDS ORDERED: IV FLUID CONTINUATION 1,000 ML IV ONE (07:32)
--- NOTE | 2018-01-30 07:35 | P.PCN ---
Date of Procedure: 01/30/18 Description of Procedure: SURGEON: HUNG RITTER MD PATTERN GATER: None. PREOPERATIVE DIAGNOSIS: 1. Breast cancer 2. Chemotherapeutic venous access. 3. Morbid obesity due to excess calories, BMI 43.6. POSTOPERATIVE DIAGNOSIS: 1. Breast cancer 2. Chemotherapeutic venous access. 3. Morbid obesity due to excess calories, BMI 43.6. OPERATION: Removal of right internal jugular vein Port-A-Cath. ANESTHESIA: MAC with 30 mL local ESTIMATED BLOOD LOSS: 5 mL SPECIMENS REMOVED: Port-A-Cath COMPLICATIONS: None. INDICATIONS: The patient is a 47-year-old female who completed chemotherapy. She now has elected for removal. Benefits and risks were described. Informed consent was obtained. DESCRIPTION OF PROCEDURE: Patient was brought to the operating room, laid in supine position. After IV sedation the chest wall on the left side was prepped and draped in standard sterile fashion. Prior to incision, a timeout protocol was confirmed with surgical team regarding the patient's name including procedures to be performed. As this was a clean case, no further antibiotics were required. Additionally, early ambulation was encouraged for DVT prophylaxis. Attention was brought to the area of the port site, whereby a total of 30 mL of local was infiltrated into the skin for a field block. A #15 blade was used to incise along the previous cicatrix. Electro- Bovie cautery was used to control for hemostasis. Adhesions were lysed around the Mediport. The port was extracted without sequelae. Pressure for 2 minutes was placed along the internal jugular vein. Hemostasis was checked along the pocket of the Port-A-Cath site. The wound was closed in layers using 3-0 Vicryl for the deep subcutaneous tissues followed by 4-0 Monocryl in a running subcuticular fashion. Dermabond was applied to the skin. Once dried a 4 x 4 Optifoam was applied. At the end of the procedure needle, sponge and instrument counts were verified correct by the surgical scrub technician. The patient had tolerated the procedure well and was taken to postanesthesia care in stable condition. FINDINGS: 1. Unremarkable Port-a-cath extraction. Plan - Discharge Summary New Discharge Prescriptions: No Action Gabapentin [Neurontin] 100 mg PO HS Discharge Medication List Gabapentin [Neurontin] 100 mg PO HS 01/26/18 [History] Patient Instructions/Handouts: *Surgery [facility] - (Anesthesia) Discharge Instructions Outpatient Surgery
[2018-01-30 07:47] VITALS: BP 123/83; PULSE 75; RESP 18
== END 2018-01-30 08:07 | disposition home or self-care (01) ==
LOC: OR 05:46
PROVIDERS: ATTEND Surgery Plastic and Reconstructive Surgery
DX: Z45.2 Encounter for adjustment and management of vascular access device (principal); E66.01 Morbid (severe) obesity due to excess calories; G62.9 Polyneuropathy, unspecified; Z68.41 Body mass index [BMI] 40.0-44.9, adult; Z85.3 Personal history of malignant neoplasm of breast; Z87.891 Personal history of nicotine dependence; Z92.21 Personal history of antineoplastic chemotherapy; Z79.899 Other long term (current) drug therapy; Z83.3 Family history of diabetes mellitus; Z82.49 Family history of ischemic heart disease and other diseases of the circulatory system; Z90.710 Acquired absence of both cervix and uterus
CPT/HCPCS: 81025; 36590; J2250; J2001; J3010; J2704; J0690

== ENCOUNTER → 2018-03-10 | Outpatient (CLI) | payer BC, OTHER ==
--- NOTE | 2018-03-10 16:21 | US ---
EXAMINATION TYPE: US venous doppler duplex LE LT DATE OF EXAM: 03/10/2018 2:46 PM COMPARISON: NONE CLINICAL HISTORY: 47-year-old female R22.42 Localized swelling, mass and lump, left leg. Anterior roldan n palpables that are painful, no h/o DVT in, on Tamoxifen for Breast CA SIDE PERFORMED: Left TECHNIQUE: The lower extremity deep venous system is examined utilizing real time linear array sonog rufus with graded compression, doppler sonography and color-flow sonography. VESSELS IMAGED: External Iliac Vein (EIV) Common Femoral Vein Deep Femoral Vein Greater Saphenous Vein * Femoral Vein Popliteal Vein Small Saphenous Vein * Proximal Calf Veins (* superficial vessels) Clothing Supervisor notes: Left Leg: Appears negative for DVT *soft tissue scan of left anterior zuleta at [facility] produced normal appearing tissue. IMPRESSION: 1. No evidence for DVT within the left lower extremity imaged from the groin to the upper calf. 2. No discrete sonographic abnormality along the anterior zuleta at the patient's palpable sites. If pa lpable areas persist and there is concern for pathology such as myofascial herniations, consider dedi cated soft tissue ultrasound with a high frequency transducer before and after exercise.
== END | disposition home or self-care (01) ==
LOC: RADUSWWP 13:31
PROVIDERS: ATTEND Internal Medicine
DX: R22.42 Localized swelling, mass and lump, left lower limb (principal); Z79.899 Other long term (current) drug therapy

== ENCOUNTER → 2018-06-22 | Outpatient (CLI) | payer BC ==
--- NOTE | 2018-06-22 17:16 | XR ---
Left foot HISTORY: Pain and swelling 3 views of the left foot Bone mineralization, joint spaces and alignment are maintained. Degenerative change present at the fi rst metatarsophalangeal joint. There is a plantar calcaneal spur present. IMPRESSION: No fracture or dislocation. Foot MRI may be of benefit.
== END ==
LOC: RADXRMAIN 15:36
PROVIDERS: ATTEND Nurse Practitioner Family
DX: M79.672 Pain in left foot (principal)

== ENCOUNTER 2018-10-01 05:09 | Emergency (ER) | payer BC ==
[2018-10-01 05:18] VITALS: TEMP 97.7
[2018-10-01] MEDS ORDERED: SODIUM CHLORIDE 0.9% 1,000 ML IV STA (05:31)
[2018-10-01 06:51] LABS: HCT 38.2 % (34.0-46.0); HGB 12.8 gm/dL (11.4-16.0); MCH 30.3 pg (25.0-35.0); MCHC 33.3 g/dL (31.0-37.0); MCV 90.8 fL (80.0-100.0); RBC 4.21 m/uL (3.80-5.40); RDW 13.4 % (11.5-15.5); WBC 5.7 k/uL (3.8-10.6)
[2018-10-01 06:52] LABS: Basophils % (A) 1 %; Eosinophils # (A) 0.1 k/uL (0-0.7); Eosinophils % (A) 2 %; Lymphocytes % (A) 17 %; Mean Platelet Volume 7.4; Monocytes # (A) 0.3 k/uL (0-1.0); Monocytes % (A) 6 %; Neutrophils # (A) 4.2 k/uL (1.3-7.7); Neutrophils % (A) 74 %; Platelet Count 256 k/uL (150-450)
[2018-10-01 07:00] LABS: Albumin 3.9 g/dL (3.5-5.0); Anion Gap 12 mmol/L; Blood Urea Nitrogen 13 mg/dL (7-17); Calcium 9.5 mg/dL (8.4-10.2); Carbon Dioxide 21 mmol/L (22-30); Chloride 103 mmol/L (98-107); Glucose 207 mg/dL (74-99); Sodium 136 mmol/L (137-145); Total Bilirubin 0.6 mg/dL (0.2-1.3); Total Protein 6.8 g/dL (6.3-8.2)
[2018-10-01 07:09] LABS: ALT 38 U/L (9-52); AST 28 U/L (14-36); Alkaline Phosphatase 74 U/L (38-126); Potassium 4.3 mmol/L (3.5-5.1)
--- NOTE | 2018-10-01 07:28 | ED ---
General Adult HPI - General Chief complaint: Dizziness Stated complaint: Lightheaded Time Seen by Provider: 10/01/18 05:31 Source: patient Mode of arrival: ambulatory Limitations: no limitations - History of Present Illness Initial comments: Marilu is a pleasant 48 her old female who presents the emergency department today for evaluation of lightheadedness. Patient reports that she was recently diagnosed with gout and prescribed colchicine today is her third day taking the medication. She reports that she hasn't been able to go to work for the past 2 days due to pain in her foot from the gout. She reports that this morning she got up to go to work she showered and then began feeling very lightheaded and weak. She thought this may be because her blood sugar was getting low so she sat down and had a bowl of cereal however when she got back up to continue getting ready she continued to feel this way which prompted her to come to the ER for evaluation. Upon arrival patient reports that she is feeling somewhat better. - Related Data Home Medications Medication Instructions Recorded Confirmed Colchicine 0.6 mg PO DAILY 10/01/18 10/01/18 Tamoxifen Citrate 20 mg PO DAILY 10/01/18 10/01/18 Allergies Allergy/AdvReac Type Severity Reaction Status Date / Time No Known Allergies Allergy Verified 10/01/18 06:48 Review of Systems ROS Statement: Those systems with pertinent positive or pertinent negative responses have been documented in the HPI. ROS Other: All systems not noted in ROS Statement are negative. Past Medical History Past Medical History: Cancer, Vascular Disorder Additional Past Medical History / Comment(s): hx Breast Cancer 03/2017; Hx shingles. 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 History of Any Multi-Drug Resistant Organisms: None Reported Past Surgical History: Section, Hysterectomy, Orthopedic Surgery Additional Past Surgical History / Comment(s): knee surgery,wisdom teeth, pericardiocentesis; chemotherapy, lumpectomy, mediport in and out Past Anesthesia/Blood Transfusion Reactions: No Reported Reaction Additional Past Anesthesia/Blood Transfusion Reaction / Comment(s): no hx blood transfusion Past Psychological History: No Psychological Hx Reported Smoking Status: Former smoker Past Alcohol Use History: Rare Past Drug Use History: None Reported - Past Family History Father Family Medical History: COPD Additional Family Medical History / Comment(s): SCLERADERMA,EMPHYSEMA, GOUT Mother Family Medical History: Diabetes Mellitus, Hypertension, Osteoarthritis (OA), Rheumatoid Arthritis (RA) Additional Family Medical History / Comment(s): Pericarditis Sister(s) Additional Family Medical History / Comment(s): GRAVES DISEASE AND HER SON HAS ADDISONS DISEASE General Exam - General Exam Comments Initial Comments: Physical Exam GENERAL: Patient is well-developed and well-nourished. Patient is nontoxic and well- hydrated and is in no distress. HENT: Normocephalic, Atraumatic. EYES: PERRL, EOMI PULMONARY: Unlabored respirations. No audible rales rhonchi or wheezing was noted. CARDIOVASCULAR: There is a regular rate and rhythm without any murmurs gallops or rubs. ABDOMEN: Soft and nontender with normal bowel sounds. SKIN: Skin is clear with no lesions or rashes and otherwise unremarkable. : Deferred NEUROLOGIC: Patient is alert and oriented x3. Moving all extremities spontaneously MUSCULOSKELETAL: Normal extremities with adequate strength and full range of motion. No lower extremity swelling or edema. No calf tenderness. PSYCHIATRIC: Normal psychiatric evaluation. Limitations: no limitations Limitations: no limitations Course Vital Signs 10/01/18 10/01/18 05:13 07:39 Temperature 97.7 F Pulse Rate 104 H 65 Respiratory 18 16 Rate Blood Pressure 105/66 109/79 O2 Sat by Pulse 98 98 Oximetry EKG Findings - EKG Comments: EKG Findings:: EKG obtained at 6:43 AM, rate is 80 rhythm is sinus there is normal axis, normal intervals, MT 150, QRS 72, QTc 433. There are no acute ST elevations or depressions no evidence of acute ischemia or infarction Medical Decision Making - Medical Decision Making Patient was seen and evaluated history is obtained from the patient Patient presented with some lightheadedness this morning after getting out of the shower but didn't resolve after eating breakfast. Upon arrival the patient's blood pressure is mildly low she reports her blood pressure is usually relatively low pelvic 110/70, patient is mildly tachycardic. She has no complaints of chest pain shortness of breath or diaphoresis she has no cardiac history Patient concerned that the symptoms may be related to colchicine Labs and imaging were ordered she was given 1 L fluid bolus labs were unremarkable EKG was nonischemic no signs of arrhythmia, chest x-ray unremarkable she was reevaluated after fluid she reports feeling much better at this time patient's comfortable with the plan for discharge home. Will be provided with a work note. All questions pertaining to care were answered return parameters were discussed patient was discharged home in stable condition - Lab Data Result diagrams: 10/01/18 06:30 10/01/18 06:30 Lab Results 10/01/18 10/01/18 10/01/18 Range/Units 06:30 06:30 06:30 WBC 5.7 (3.8-10.6) k/uL RBC 4.21 (3.80-5.40) m/uL Hgb 12.8 (11.4-16.0) gm/dL Hct 38.2 (34.0-46.0) % MCV 90.8 (80.0-100.0) fL MCH 30.3 (25.0-35.0) pg MCHC 33.3 (31.0-37.0) g/dL RDW 13.4 (11.5-15.5) % Plt Count 256 (150-450) k/uL Neutrophils % 74 % Lymphocytes % 17 % Monocytes % 6 % Eosinophils % 2 % Basophils % 1 % Neutrophils # 4.2 (1.3-7.7) k/uL Lymphocytes # 1.0 (1.0-4.8) k/uL Monocytes # 0.3 (0-1.0) k/uL Eosinophils # 0.1 (0-0.7) k/uL Basophils # 0.0 (0-0.2) k/uL Sodium 136 L (137-145) mmol/L Potassium 4.3 (3.5-5.1) mmol/L Chloride 103 (98-107) mmol/L Carbon Dioxide 21 L (22-30) mmol/L Anion Gap 12 mmol/L BUN 13 (7-17) mg/dL Creatinine 0.72 (0.52-1.04) mg/dL Est GFR (CKD-EPI)AfAm >90 (>60 ml/min/1.73 sqM) Est GFR (CKD-EPI)NonAf >90 (>60 ml/min/1.73 sqM) Glucose 207 H (74-99) mg/dL Calcium 9.5 (8.4-10.2) mg/dL Total Bilirubin 0.6 (0.2-1.3) mg/dL AST 28 (14-36) U/L ALT 38 (9-52) U/L Alkaline Phosphatase 74 (38-126) U/L Troponin I <0.012 (0.000-0.034) ng/mL Total Protein 6.8 (6.3-8.2) g/dL Albumin 3.9 (3.5-5.0) g/dL Disposition Clinical Impression: Lightheadedness Disposition: HOME SELF-CARE Condition: Stable Instructions (If sedation given, give patient instructions): Lightheadedness (ED) Is patient prescribed a controlled substance at d/c from ED?: No Referrals: Aline Gomes MD [Primary Care Provider] - 1-2 days Time of Disposition: 07:29
[2018-10-01 07:41] VITALS: BP 109/79; PULSE 65; RESP 16
== END 2018-10-01 07:40 | disposition home or self-care (01) ==
LOC: EC 05:09
DX: R42 Dizziness and giddiness (principal); R53.1 Weakness; R00.0 Tachycardia, unspecified; R03.1 Nonspecific low blood-pressure reading; M10.9 Gout, unspecified; Z85.3 Personal history of malignant neoplasm of breast; Z87.891 Personal history of nicotine dependence; Z92.21 Personal history of antineoplastic chemotherapy; Z90.710 Acquired absence of both cervix and uterus; Z98.890 Other specified postprocedural states; Z79.899 Other long term (current) drug therapy
CPT/HCPCS: 36415; 80053; 84484; 85025; 93005; 96360; 99284

== ENCOUNTER → 2018-10-28 | Outpatient (CLI) | payer BC ==
--- NOTE | 2018-10-28 14:23 | MM ---
Reason for exam: additional evaluation requested from prior study. Last mammogram was performed 1 year and 7 months ago. History: Patient has history of breast cancer at age 46. Family history of breast cancer in maternal aunt and breast cancer in maternal cousin. Malignant MG pre op needle loc LT of the left breast, June 03, 2017. Lumpectomy of the left breast, June 03, 2017. Malignant US biopsy breast VAD LT of the left breast, April 09, 2017. Physical Findings: Nurse did not find any significant physical abnormalities on exam. MG Diagnostic Mammo w CAD KEVEN Bilateral CC and MLO view(s) were taken. Prior study comparison: April 09, 2017, left breast MG diagnostic mammo LT wo CAD. April 04, 2017, bilateral MG 3d diag mammo w/cad KEVEN. The breast tissue is heterogeneously dense. This may lower the sensitivity of mammography. No significant new findings when compared with previous films. These results were verbally communicated with the patient and result sheet given to the patient on 10/28/18. ASSESSMENT: Benign, BI-RAD 2 RECOMMENDATION: Routine screening mammogram of both breasts in 1 year.
== END ==
LOC: RADMAMWWP 13:32
PROVIDERS: ATTEND Radiology Radiation Oncology
DX: C50.412 Malignant neoplasm of upper-outer quadrant of left female breast (principal); C77.9 Secondary and unspecified malignant neoplasm of lymph node, unspecified; Z92.3 Personal history of irradiation; Z17.0 Estrogen receptor positive status [ER+]
CPT/HCPCS: 77066

== ENCOUNTER → 2020-11-01 | Outpatient (CLI) | payer BC ==
--- NOTE | 2020-11-01 20:44 | CONS ---
CONSULTATION DATE OF SERVICE: 11/01/2020 50-year-old lady who has been evaluated in the sleep center for possible obstructive sleep apnea-hypopnea syndrome and excessive daytime sleepiness. HISTORY OF PRESENT ILLNESS/SLEEP-WAKE EVALUATION: SLEEP SCHEDULE: Patient's usual sleep schedule from 9:30 p.m. to 3 a.m. on weekdays and until around 9 a.m. on weekends. FALLING ASLEEP: She does have problems with falling asleep, although no TV in bedroom. DURING SLEEP: Sleeps on the side position and stomach position. She wakes up from sleep several times with loud snoring. DURING THE DAY/SLEEP WAKE EVALUATION: During the day, she falls asleep, has problems with memory and concentration. Clay Sleepiness Scale significantly increased to 13. No history of hypnagogic hallucinations, sleep paralysis or cataplexy. PAST MEDICAL HISTORY: Positive for pericarditis, breast carcinoma. PAST SURGICAL HISTORY: Laminectomy, radiation therapy for the left breast, . Additional procedure for pericardial effusion in 2018. Surgery for fibula patella fracture in the past. MEDICATIONS: None at the present time. SOCIAL HISTORY: Positive for smoking for 30 pack years, then quit for 2 years and presently smokes about 1/4 pack a day. Alcohol consumption occasional. REVIEW OF SYSTEMS: Awakenings from sleep, snoring, sleepiness during the day. FAMILY HISTORY: Hypertension, diabetes, thyroid problems, sleep apnea. PHYSICAL EXAMINATION: GENERAL: lady without distress. BP 112/53, HR 75, RR 14, height 5 foot 4, weight 260.6, mass index 44.7, temperature 97.3, oxygen saturation at room air 97%. Oropharynx low position of soft palate. Mallampati III. NECK: Wide 19 inches in circumference. NECK: Supple, no JVD. Thyroid is not palpable. LUNGS: Clear to percussion and to auscultation. Good air exchange. No wheezing or rhonchi. HEART: S1, S2 regular. No murmurs, gallops, or rubs. ABDOMEN: Obese. Soft and nontender. Bowel sounds are present. No organomegaly appreciated. EXTREMITIES: No clubbing or cyanosis. SPECIAL EDUCATION EDUCATIONAL ASSISTANT: Awake, alert, and oriented X3. Cranial nerves 2 to 7 intact. There is no fasciculation or atrophy. noted. No focal deficits observed. IMPRESSION: 1. Low position of soft palate. Mallampati 3. Wide neck 19 inches in circumference, sleepiness, Clay Sleepiness Scale increased to 13, obstructive sleep apnea- hypopnea syndrome. 2. Obesity, BMI 44.7. 3. History of a left breast carcinoma, treated with laminectomy and radiation therapy and chemotherapy. 4. History of pericarditis. 5. Status post C section. PLAN: 1. Home sleep apnea test for evaluation of patient breathing during sleep. 2. CPAP/BiPAP titration if sleep study confirms obstructive sleep apnea-hypopnea syndrome. 3. Preferable position during sleep on the side. 4. No driving if patient feels any sleepiness. 5. I will see patient for follow up visit to explain results of testing and following plan. Thank you very much for referring this patient for consultation. Sincerely, Sreedhar Henao MD, PhD, FAASM Diplomat of [employer] Second Shift Supervisor of [facility] [place] MMODL / IJN: [id number] /
== END ==
CPT/HCPCS: 99211

== ENCOUNTER 2021-12-19 06:39 | Day surgery (SDC) | payer BC ==
[~2021-12-19 06:39] MED LIST changes: +LIDOCAINE 1% (10MG/ML) FOR IV START INTRADERMA PRN; -LIDOCAINE 1% 20 ML VIAL (10MG/ML) FOR IV START INTRADERMA PRN; -ceFAZolin IN SWFI 2 GM/20 ML SYRINGE IVP ONE
[2021-12-19 07:11] VITALS: TEMP 97.3
[2021-12-19] MEDS ORDERED: PROPOFOL 10 MG/ML 20 ML VIAL IV ONE (08:00)
--- NOTE | 2021-12-19 08:23 | P.PCN ---
Date of Procedure: 12/19/21 Procedure(s) Performed: BRIEF HISTORY: Patient is a 51-year-old pleasant white female scheduled for an elective colonoscopy as a part of evaluation of intermittent rectal bleeding for the last 6 months duration. PROCEDURE PERFORMED: Colonoscopy. PREOPERATIVE DIAGNOSIS: Intermittent rectal bleeding. IV sedation per Anesthesia. PROCEDURE: After informed consent was obtained, the patient, was brought into the endoscopy unit. IV sedation was administered by Anesthesia under continuous monitoring. Digital rectal examination was normal. Initially the Olympus CF-160 flexible video colonoscope was then inserted in the rectum, gradually advanced into the cecum without any difficulty. Careful examination was performed as the scope was gradually being withdrawn. Ileocecal valve and the appendiceal orifice were visualized and appeared normal. Prep was excellent. Mucosa of the cecum, ascending colon, transverse colon, descending colon, sigmoid colon, and rectum appeared normal. Scattered sigmoid diverticulosis. Retroflexion was performed in the rectum and monitor were seen. The patient tolerated the procedure well. IMPRESSION: Normal-appearing colon from rectum to cecum with no evidence of colorectal neoplasia. Scattered sigmoid diverticulosis Small internal hemorrhoids RECOMMENDATIONS: Findings of this examination were discussed with the patient as well as a family. She was advised to be a high-fiber diet and take fiber supplements a regular basis. Recommend a repeat screening colonoscopy in 10 years..
[2021-12-19 08:32] VITALS: RESP 16
[2021-12-19 09:04] VITALS: BP 128/65; PULSE 68
== END 2021-12-19 09:06 | disposition home or self-care (01) ==
LOC: ORWHC2ENDO 06:39
PROVIDERS: ATTEND Internal Medicine Gastroenterology
DX: K62.5 Hemorrhage of anus and rectum (principal); K57.30 Diverticulosis of large intestine without perforation or abscess without bleeding; K64.8 Other hemorrhoids
CPT/HCPCS: 45378; J2704

== ENCOUNTER 2022-02-26 18:53 | Emergency (ER) | payer BC ==
[2022-02-26 19:12] VITALS: BP 118/80; PULSE 88; RESP 18; TEMP 98.5
--- NOTE | 2022-02-26 19:52 | XR ---
EXAMINATION TYPE: XR knee complete LT DATE OF EXAM: 02/26/2022 COMPARISON: NONE HISTORY: Pain TECHNIQUE: 3 views FINDINGS: There is plate with screws fixing old fracture of the lateral tibial condyle. I see no acut e fracture nor dislocation. There is small knee joint effusion. Patella is intact. IMPRESSION: Previous surgery. Minute medial joint effusion. No fracture.
[2022-02-26] MEDS ORDERED: NAPROXEN 250 MG TAB PO STA (20:13)
[2022-02-26] MEDS ORDERED: ACETAMINOPHEN TAB 500 MG TAB PO STA (20:15)
--- NOTE | 2022-02-26 20:20 | ED ---
Lower Extremity Injury HPI - General Chief Complaint: Extremity Injury, Lower Stated Complaint: lt knee pain Time Seen by Provider: 02/26/22 20:02 Source: patient, RN notes reviewed Mode of arrival: wheelchair Limitations: no limitations - History of Present Illness Initial Comments: This is a pleasant 51-year-old female who presents to emergency department complaining of left knee pain. Patient states it seemed to start yesterday but got worse today. Patient denying any known injury. Patient is on her feet all the time at work. No fever or chills. No other joint pain. There was no direct trauma. Patient had x-rays done in triage. Patient previously had knee surgery in the [place] area in 2007. No recent procedures. No distal pa resthesias. No dysarthria proximal injuries. No distal proximal pain. Pain is exacerbated by movement and alleviated by rest. No headache, no fever or chills, no changes in vision or hearing, no sore throat or difficulty with speech, no neck pain, no chest pain or shortness of breath, no abdominal pain, no nausea or vomiting, no changes in urination or bowel movements, no numbness or tingling, , no skin rashes or lesions. Past medical, surgical, social, and family history reviewed. - Related Data Previous Rx's Medication Instructions Recorded Acetaminophen Tab [Tylenol Tab] 500 mg PO Q6H PRN #24 tablet 02/26/22 Naproxen [Naprosyn] 375 mg PO Q12HR PRN #20 tablet 02/26/22 Allergies Allergy/AdvReac Type Severity Reaction Status Date / Time No Known Allergies Allergy Verified 12/19/21 07:17 Review of Systems ROS Statement: Those systems with pertinent positive or pertinent negative responses have been documented in the HPI. ROS Other: All systems not noted in ROS Statement are negative. Past Medical History Past Medical History: Cancer Additional Past Medical History / Comment(s): hx left Breast Cancer 03/2017-had surg, chemo & radiation; Hx shingles. 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, rectal bleeding recently History of Any Multi-Drug Resistant Organisms: None Reported Past Surgical History: Section, Hysterectomy, Orthopedic Surgery Additional Past Surgical History / Comment(s): ORIF left knee,wisdom teeth, pericardiocentesis; left breast lumpectomy, mediport in and out Past Anesthesia/Blood Transfusion Reactions: No Reported Reaction Additional Past Anesthesia/Blood Transfusion Reaction / Comment(s): no hx blood transfusion Past Psychological History: No Psychological Hx Reported Smoking Status: Current every day smoker - Past Family History Father Family Medical History: COPD Additional Family Medical History / Comment(s): SCLERADERMA,EMPHYSEMA, GOUT Mother Family Medical History: Diabetes Mellitus, Hypertension, Osteoarthritis (OA), Rheumatoid Arthritis (RA) Additional Family Medical History / Comment(s): Pericarditis Sister(s) Additional Family Medical History / Comment(s): GRAVES DISEASE AND HER SON HAS ADDISONS DISEASE General Exam - General Exam Comments Initial Comments: Patient does not appear to be ill or toxic. Patient afebrile. Vital signs reviewed Limitations: no limitations General appearance: alert, in no apparent distress Head exam: Present: atraumatic, normocephalic, normal inspection Eye exam: Present: normal appearance, PERRL, EOMI. Absent: scleral icterus, conjunctival injection, periorbital swelling ENT exam: Present: normal exam, mucous membranes moist Neck exam: Present: normal inspection, full ROM Respiratory exam: Present: normal lung sounds bilaterally. Absent: respiratory distress, wheezes, rales, rhonchi, stridor Cardiovascular Exam: Present: regular rate, normal rhythm, normal heart sounds. Absent: systolic murmur, diastolic murmur, rubs, gallop, clicks GI/Abdominal exam: Present: soft, normal bowel sounds. Absent: distended, tenderness, guarding, rebound, rigid Extremities exam: Present: full ROM, tenderness (Medial joint line area), normal capillary refill, other (No erythema. No break in skin integrity. No rash or lesion. Range of motion somewhat limited the patient is able to flex to about 100 without difficulty. Patient has full extension. Ligaments are stable as tested. Patient does have an effusion which is palpable.). Absent: normal inspection (Patient has notable edema to the left knee.), pedal edema, joint swelling, calf tenderness Back exam: Present: normal inspection, full ROM Neurological exam: Present: alert, oriented X3, CN II-XII intact Psychiatric exam: Present: normal affect, normal mood Skin exam: Present: warm, dry, intact, normal color. Absent: rash, erythema (No erythema or evidence of infectious process) Course Vital Signs 02/26/22 19:09 Temperature 98.5 F Pulse Rate 88 Respiratory 18 Rate Blood Pressure 118/80 O2 Sat by Pulse 98 Oximetry Medical Decision Making - Medical Decision Making She presents with left knee pain, mild effusion on x-ray. Post surgical appliance noted on x-ray. No acute findings other than the effusion. This does not appear to be consistent with infection. Does not appear to be consistent with vascular insult. Distal sensation and distal neurovascular status intact. Immobilizer applied. Patient given work restrictions, Naprosyn, Tylenol, follow-up instructions orthopedics. The case was discussed in detail with ED attending physician. Presentation, findings, treatment plan discussed in detail. Patient was told to return to the ER for any signs or symptoms worsen. Told to return immediately if any other problems arise. All questions answered. Treatment plan discussed. Patient in agreement Every effort has been made to ensure accuracy of this dictation. However, due to the limitations of electronic medical records and dictation devices, errors in charting still occur. Apartment Le[employer] Agent Dr. Yoon - Radiology Data Radiology results: report reviewed, image reviewed Disposition Clinical Impression: Effusion, left knee Disposition: HOME SELF-CARE Condition: Good Instructions (If sedation given, give patient instructions): Swollen Knee Joint (ED), Knee Pain (ED), Knee Immobilizer (ED) Additional Instructions: Follow-up with your regular physician as directed. Return to the ER immediately if any symptoms worsen, new symptoms arise, or any other problems develop. Call tomorrow morning to set up a follow-up appointment with the orthopedic doctor as discussed. Prescriptions: Naproxen [Naprosyn] 375 mg PO Q12HR PRN #20 tablet PRN Reason: Pain Acetaminophen Tab [Tylenol Tab] 500 mg PO Q6H PRN #24 tablet PRN Reason: Pain Is patient prescribed a controlled substance at d/c from ED?: No Referrals: Mohit Quesada DO [Doctor of Osteopathic Medicine] - 03/01/22 Time of Disposition: 20:19
== END 2022-02-26 21:02 | disposition home or self-care (01) ==
LOC: EC 18:53
DX: M25.462 Effusion, left knee (principal); F17.200 Nicotine dependence, unspecified, uncomplicated
CPT/HCPCS: 73562; 99283; L1830

== ENCOUNTER 2025-01-12 20:59 | Emergency (ER) | payer BC, OTHER ==
--- NOTE | 2025-01-12 22:23 | ED ---
Abdominal Pain HPI - General Source: patient Mode of arrival: ambulatory Limitations: no limitations <Catrina Velázquez - Last Filed: 01/12/25 22:23> <Keisha Zelaya - Last Filed: 01/13/25 07:09> - General Chief Complaint: Abdominal Pain Stated Complaint: Abd pain, abd cramps Time Seen by Provider: 01/12/25 22:23 - History of Present Illness Initial Comments: Quick note: 54-year-old female presenting with chief complaint of "charley horses" in the left upper quadrant. Started today. She states that this is intermittent. She does get some nausea when the pain spikes. No change in bowel movements. No fever. She reports that she does have a history of a hiatal hernia. (Catrina Velázquez) Patient is a pleasant previously healthy 54-year-old female presenting today for abdominal pain. Described as charley horses and left upper quadrant abdomen. Come and go. Started this evening and were more persistent than usual. Pain is intermittent. Is not exacerbated by certain foods or positions. States she has a ventral wall hernia which intermittently bulges but is reducible. She is concerned for obstruction or that she needs hernia surgery. Currently endorses nausea, vomiting, currently denies nausea, vomiting, diaphoresis, chest pain, shortness breath, fevers, chills, diarrhea, melena, hematochezia, constipation. Has daily soft stools. Denies dysuria urinary frequency or hematuria that is states she has persistent UTIs. (Keisha Zleaya) - Related Data Previous Rx's Medication Instructions Recorded Acetaminophen Tab [Tylenol Tab] 500 mg PO Q6H PRN #24 tablet 02/26/22 Naproxen [Naprosyn] 375 mg PO Q12HR PRN #20 tablet 02/26/22 Cephalexin [Keflex] 500 mg PO Q12HR 7 Days #14 cap 01/13/25 Allergies Allergy/AdvReac Type Severity Reaction Status Date / Time No Known Allergies Allergy Verified 01/12/25 21:25 Review of Systems ROS Other: All systems not noted in ROS Statement are negative. <Catrina Velázquez - Last Filed: 01/12/25 22:23> ROS Other: All systems not noted in ROS Statement are negative. <Keisha Zelaya - Last Filed: 01/13/25 07:09> ROS Statement: Those systems with pertinent positive or pertinent negative responses have been documented in the HPI. Past Medical History Past Medical History: Cancer Additional Past Medical History / Comment(s): hx left Breast Cancer 03/2017-had surg, chemo & radiation; Hx shingles. 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, rectal bleeding recently History of Any Multi-Drug Resistant Organisms: None Reported Past Surgical History: Section, Hysterectomy, Orthopedic Surgery Additional Past Surgical History / Comment(s): ORIF left knee,wisdom teeth, pericardiocentesis; left breast lumpectomy, mediport in and out Past Anesthesia/Blood Transfusion Reactions: No Reported Reaction Additional Past Anesthesia/Blood Transfusion Reaction / Comment(s): no hx blood transfusion Past Psychological History: No Psychological Hx Reported Smoking Status: Current every day smoker - Past Family History Father Family Medical History: COPD Additional Family Medical History / Comment(s): SCLERADERMA,EMPHYSEMA, GOUT Mother Family Medical History: Diabetes Mellitus, Hypertension, Osteoarthritis (OA), Rheumatoid Arthritis (RA) Additional Family Medical History / Comment(s): Pericarditis Sister(s) Additional Family Medical History / Comment(s): GRAVES DISEASE AND HER SON HAS ADDISONS DISEASE <Catrina Velázquez - Last Filed: 01/12/25 22:23> General Exam Limitations: no limitations <Catrina Velázquez - Last Filed: 01/12/25 22:23> <Keisha Zelaya - Last Filed: 01/13/25 07:09> - General Exam Comments Initial Comments: Visual Physical Exam Vital signs reviewed General: Well-appearing, nontoxic, no acute distress. Head: Normocephalic, atraumatic Eyes: PERRLA, EOMI ENT: Airway patent Chest: Nonlabored breathing Skin: No visual rash, normal skin tone Neuro: Alert and oriented 3 Musculoskeletal: No gross abnormalities (Catrina Velázquez) PE: CONSTITUTIONAL: No apparent distress, well appearing SKIN: Warm, dry, no jaundice, hives or petechiae EYES: Pupils are equally round, extraocular movements intact without nystagmus, clear conjunctiva, non-icteric sclera HENT: Normocephalic, atraumatic, moist mucus membranes, oropharynx clear without exudates NECK: , Full range of motion, normal appearance PULMONARY: Clear to auscultation without wheezes, rhonchi, or rales, normal excursion, no accessory muscle use and no stridor CARDIOVASCULAR: Regular rate, rhythm, normal S1 and S2. No appreciated murmurs, rubs or gallops. Strong radial pulses with intact distal perfusion. No lower extremity edema GASTROINTESTINAL: Soft, active bowel sounds throughout, non-tender, non-di stended, no palpable masses, no rebound or guarding. No hepatosplenomegaly, no palpable hernias or masses GENITOURINARY: MUSCULOSKELETAL: Extremities have no gross deformity, no edema, redness, or s welling. NEUROLOGIC:_a/o x 3, GCS 15, normal mentation and speech. Moves all extremities x 4 without motor or sensory deficit PSYCHIATRIC:_normal mood and affect, thought process is clear and linear (Keisha Zelaya) Course Vital Signs 01/12/25 01/13/25 21:20 00:47 Temperature 98.7 F 98.6 F Pulse Rate 92 77 Respiratory 22 18 Rate Blood Pressure 129/76 149/89 O2 Sat by Pulse 97 98 Oximetry Medical Decision Making <Catrina Velázquez - Last Filed: 01/12/25 22:23> - Lab Data Result diagrams: 01/12/25 22:51 01/12/25 22:51 <Keisha Zelaya - Last Filed: 01/13/25 07:09> - Medical Decision Making I performed the quick note portion of this visit, electronically signed Catrina Velázquez PA-C (Catrina Velázquez) Was pt. sent in by a medical professional or institution ([facility], [facility], urgent care, hospital, or assisted...) When possible be specific @ -No Did you speak to anyone other than the patient for history (EMS, parent, family, police, friend...)? What history was obtained from this source @ -No Did you review nursing and triage notes (agree or disagree)? Why? @ -I reviewed nursing and triage notes Were old charts reviewed (outside hosp., previous admission, EMS record, old EKG, old radiological studies, urgent care reports/EKG's, assisted records)? Report findings @ -Medical records reviewed-reviewed CT chest/abdomen/pelvis done on 06/2017, showed a's tiny hiatal hernia and small 3.5 cm right upper abdominal ventral wall hernia Differential Diagnosis (chest pain, altered mental status, abdominal pain women, abdominal pain men, vaginal bleeding, weakness, fever, dyspnea, syncope, headache, dizziness, GI bleed, back pain, seizure, CVA, palpatations, mental health, musculoskeletal)? @ -Differential Abdominal Pain Women: Appendicitis, Cholecystitis, diverticulosis, ischemic bowel, pancreatitis, hepatitis, UTI, gastroenteritis, AAA, incarcerated hernia, bowel obstruction, constipation, inflammatory bowel, hepatitis, peptic ulcer disease, splenic infarction, perforated viscus, vulvitis, ovarian torsion, PID, kidney stone, placenta abruption, this is not meant to be an all-inclusive list EKG interpreted by me (3pts min.). @ -As above X-rays interpreted by me (1pt min.). @Only reviewed chest x-ray I see no evidence of obstruction, free air under the diaphragm to indicate perforation or other acute process CT interpreted by me (1pt min.). @ -None done U/S interpreted by me (1pt. min.). @ -None done What testing was considered but not performed or refused? (CT, X-rays, U/S, labs)? Why? @ -None What meds were considered but not given or refused? Why? @ -None Did you discuss the management of the patient with other professionals (professionals i.e. , PA, CLOTH SANDER, lab, RT, psych nurse, social work instructor, trade marker, teacher, helicopter officer, manager case management)? Give summary @ -No Was smoking cessation discussed for >3mins.? @ -No Was critical care preformed (if so, how long)? @ -No Were there social determinants of health that impacted care today? How? (Homelessness, low income, unemployed, alcoholism, drug addiction, tillman sportation, low edu. Level, literacy, decrease access to med. care, assisted, rehab)? @ -No Was there de-escalation of care discussed even if they declined (Discuss DNR or withdrawal of care, Hospice)? @ -No What co-morbidities impacted this encounter? (DM, HTN, Smoking, COPD, CAD, Cancer, CVA, ARF, Chemo, Hep., AIDS, mental health diagnosis, sleep apnea, morbid obesity)? @ -None Was patient admitted / discharged? Hospital course, mention meds given and route, prescriptions, significant lab abnormalities, going to OR and other pertinent info. @ -Discharge-Patient is a previously healthy 54-year female presenting today for intermittent left-sided upper quadrant abdominal pain. Patient was initially seen and assessed by triage provider and OLGA labs were ordered. I assessed patient in a hallway chair and obtained her permission to perform assessment in hallway and obtain hx. She is well-appearing, soft nontender abdomen, no CVA tenderness. No palpable hernias. Labs reviewed. No significant findings, no leukocytosis, no elevated LFTs. Urinalysis pending Reviewed KUB, does not appear to show obstruction or air-fluid levels. Patient states she is currently comfortable and politely declined any additional pain medications. UA ultimately did show signs of Urinary tract infection with cloudy urine, small blood, positive nitrites, large leukocyte esterase and many bacteria. Updated patient of these findings and discussed plan for discharge home with cephalexin. She was instructed to follow-up with her primary Doctor within 1 week for recheck of her urine to ensure clearing of hematuria and infection. Patient and I discussed signs symptoms warranting return to the ER such as fevers, not passing gas or a bowel movement for greater than 5 to 7 days, vomiting and should she have any of the symptoms or experience any further concerns or wellbeing she is to return to the ER immediately. In my medical judgment there is currently no evidence of an immediate life- threatening or surgical condition. Discharge is therefore indicated at this time. Discharge treatment instructions, follow up instructions, and appropriate emergency department return precautions were discussed with the patient and/or medical decision maker. Patient and/or medical decision maker expressed u nderstanding of and agreed with the treatment plan, follow up instructions, and emergency department return precaution. All patient's and/or medical decision maker's questions were answered. The patient was advised that a small risk still exists that a serious condition could develop and was therefore instructed to return to the ED for any changes in symptoms, persistent symptoms, inability to obtain proper follow-up or for any further concerns. Patient received verbal and written instructions for this condition. Undiagnosed new problem with uncertain prognosis? @ -No Drug Therapy requiring intensive monitoring for toxicity (Heparin, Nitro, Insulin, Cardizem)? @ -No Were any procedures done? @ -No Diagnosis/symptom? @ -Urinary tract infection, left upper quadrant abdominal pain Acute, or Chronic, or Acute on Chronic? @Acute Uncomplicated (without systemic symptoms) or Complicated (systemic symptoms)? @ -Uncomplicated Side effects of treatment? @ -No Exacerbation, Progression, or Severe Exacerbation? @ -No Poses a threat to life or bodily function? How? (Chest pain, USA, DC, pneumonia, PE, COPD, DKA, ARF, appy, cholecystitis, CVA, Diverticulitis, Homicidal, Suicidal, threat to staff... and all critical care pts) @ -No (Keisha Zelaya) - Lab Data Lab Results 01/12/25 01/12/25 01/12/25 Range/Units 22:51 22:51 22:51 WBC 7.83 (4.50-10.00) 10*3/uL RBC 4.24 (4.10-5.20) 10*6/uL Hgb 13.1 (12.0-15.0) g/dL Hct 38.2 (37.2-46.3) % MCV 90.1 (80.0-97.0) fL MCH 30.9 (27.0-32.0) pg MCHC 34.3 (32.0-37.0) g/dL Plt Count 258 (140-440) 10*3/uL MPV 9.7 (9.5-12.2) fL Immature Gran % (Auto) 0.4 % Neutrophils % 59.5 % Lymphocytes % 31.3 % Monocytes % 6.6 % Eosinophils % 1.7 % Basophils % 0.5 % Immature Gran # 0.03 (0.00-0.04) 10*3/uL Neutrophils # 4.66 (1.80-7.70) 10*3/uL Lymphocytes # 2.45 (0.90-5.00) 10*3/uL Monocytes # 0.52 (0.20-1.00) 10*3/uL Eosinophils # 0.13 (0.04-0.35) 10*3/uL Basophils # 0.04 (0.00-0.10) 10*3/uL Sodium 138 (137-145) mmol/L Potassium 4.2 (3.5-5.1) mmol/L Chloride 103 (98-107) mmol/L Carbon Dioxide 24 (22-30) mmol/L Anion Gap 11 mmol/L BUN 17 (7-17) mg/dL Creatinine 0.79 (0.52-1.04) mg/dL Est GFR (CKD-EPI)AfAm >90 (>60 ml/min/1.73 sqM) Est GFR (CKD-EPI)NonAf 87 (>60 ml/min/1.73 sqM) Glucose 100 H (74-99) mg/dL Plasma Lactic Acid Hugh 0.7 (0.7-2.0) mmol/L Calcium 9.7 (8.4-10.2) mg/dL Total Bilirubin 0.5 (0.2-1.3) mg/dL AST 22 (14-36) U/L ALT 18 (4-34) U/L Alkaline Phosphatase 91 (38-126) U/L Troponin I (0.000-0.034) ng/mL Total Protein 6.9 (6.3-8.2) g/dL Albumin 4.4 (3.5-5.0) g/dL Amylase 53 (30-110) U/L Lipase 117 (23-300) U/L Urine Color Urine Appearance (Clear) Urine pH (5.0-8.0) Ur Specific [place] (1.001-1.035) Urine Protein (Negative) Urine Glucose (UA) (Negative) Urine Ketones (Negative) Urine Blood (Negative) Urine Nitrite (Negative) Urine Bilirubin (Negative) Urine Urobilinogen (<2.0) mg/dL Ur Leukocyte Esterase (Negative) Urine RBC (0-5) /hpf Urine WBC (0-5) /hpf Ur Squamous Epith Cells (0-4) /hpf Urine Bacteria (None) /hpf Urine Mucus (None) /hpf 01/12/25 01/13/25 Range/Units 22:51 00:05 WBC (4.50-10.00) 10*3/uL RBC (4.10-5.20) 10*6/uL Hgb (12.0-15.0) g/dL Hct (37.2-46.3) % MCV (80.0-97.0) fL MCH (27.0-32.0) pg MCHC (32.0-37.0) g/dL Plt Count (140-440) 10*3/uL MPV (9.5-12.2) fL Immature Gran % (Auto) % Neutrophils % % Lymphocytes % % Monocytes % % Eosinophils % % Basophils % % Immature Gran # (0.00-0.04) 10*3/uL Neutrophils # (1.80-7.70) 10*3/uL Lymphocytes # (0.90-5.00) 10*3/uL Monocytes # (0.20-1.00) 10*3/uL Eosinophils # (0.04-0.35) 10*3/uL Basophils # (0.00-0.10) 10*3/uL Sodium (137-145) mmol/L Potassium (3.5-5.1) mmol/L Chloride (98-107) mmol/L Carbon Dioxide (22-30) mmol/L Anion Gap mmol/L BUN (7-17) mg/dL Creatinine (0.52-1.04) mg/dL Est GFR (CKD-EPI)AfAm (>60 ml/min/1.73 sqM) Est GFR (CKD-EPI)NonAf (>60 ml/min/1.73 sqM) Glucose (74-99) mg/dL Plasma Lactic Acid Hugh (0.7-2.0) mmol/L Calcium (8.4-10.2) mg/dL Total Bilirubin (0.2-1.3) mg/dL AST (14-36) U/L ALT (4-34) U/L Alkaline Phosphatase (38-126) U/L Troponin I <0.012 (0.000-0.034) ng/mL Total Protein (6.3-8.2) g/dL Albumin (3.5-5.0) g/dL Amylase (30-110) U/L Lipase (23-300) U/L Urine Color Light Yellow Urine Appearance Cloudy H (Clear) Urine pH 5.5 (5.0-8.0) Ur Specific [place] 1.018 (1.001-1.035) Urine Protein Negative (Negative) Urine Glucose (UA) Negative (Negative) Urine Ketones Negative (Negative) Urine Blood Small H (Negative) Urine Nitrite Positive H (Negative) Urine Bilirubin Negative (Negative) Urine Urobilinogen <2.0 (<2.0) mg/dL Ur Leukocyte Esterase Large H (Negative) Urine RBC 10 H (0-5) /hpf Urine WBC 45 H (0-5) /hpf Ur Squamous Epith Cells 5 H (0-4) /hpf Urine Bacteria Many H (None) /hpf Urine Mucus Rare H (None) /hpf Disposition <Catrina Velázquez - Last Filed: 01/12/25 22:23> Is patient prescribed a controlled substance at d/c from ED?: No <Keisha Zelaya - Last Filed: 01/13/25 07:09> Clinical Impression: Urinary tract infection, Left upper quadrant abdominal pain Disposition: HOME SELF-CARE Condition: Good Instructions (If sedation given, give patient instructions): Urinary Tract Infection in Women (DC), Abdominal Pain (ED) Additional Instructions: Every disease is a spectrum and a small chance still exists that a serious condition could develop, for this reason, please monitor yourself closely for new, changing or worsening symptoms, symptoms that do not improve over the next 48 hours, vomiting, not passing stool or gas for greater than 5 days, abdominal distention, if you are unable to push your hernia back in when it bulges out, fever, inability to tolerate/keep down fluids or your medications, inability to follow up with outpatient providers as instructed and should you experience these symptoms or should you have any further concerns for your wellbeing please return to the ED or call 911 immediately. Please follow-up with your primary care provider to recheck your urine within 1 week to ensure resolution of UTI. You did have a few red blood cells in your urine, please have this also rechecked by your doctor within 1 week. PLEASE call your primary care physician as soon as possible to arrange / discuss plan for followup appointment. Appointment in the next 1-3 days is strongly encouraged if possible. PLEASE let us know here before you leave if there is anything further we can do to be of any assistance. Take care and feel Better! Prescriptions: Cephalexin [Keflex] 500 mg PO Q12HR 7 Days #14 cap Referrals: Cathy Harrell MD [Primary Care Provider] - 1-2 days
[2025-01-12 23:05] LABS: Basophils # (A) 0.04 10*3/uL (0.00-0.10); Basophils % (A) 0.5 %; Eosinophils # (A) 0.13 10*3/uL (0.04-0.35); Eosinophils % (A) 1.7 %; HCT 38.2 % (37.2-46.3); HGB 13.1 g/dL (12.0-15.0); Lymphocytes # (A) 2.45 10*3/uL (0.90-5.00); Lymphocytes % (A) 31.3 %; MCH 30.9 pg (27.0-32.0); MCHC 34.3 g/dL (32.0-37.0); MCV 90.1 fL (80.0-97.0); Monocytes # (A) 0.52 10*3/uL (0.20-1.00); Monocytes % (A) 6.6 %; Neutrophils # (A) 4.66 10*3/uL (1.80-7.70); Neutrophils % (A) 59.5 %; Platelet Count 258 10*3/uL (140-440); RBC 4.24 10*6/uL (4.10-5.20); RDW 12.8 % (11.5-14.5); WBC 7.83 10*3/uL (4.50-10.00)
[2025-01-12 23:34] LABS: ALT 18 U/L (4-34); AST 22 U/L (14-36); African American GFR (CKD) >90 (>60 ml/min/1.73 sqM); Albumin 4.4 g/dL (3.5-5.0); Alkaline Phosphatase 91 U/L (38-126); Amylase 53 U/L (30-110); Anion Gap 11 mmol/L; Blood Urea Nitrogen 17 mg/dL (7-17); Calcium 9.7 mg/dL (8.4-10.2); Carbon Dioxide 24 mmol/L (22-30); Chloride 103 mmol/L (98-107); Glucose 100 mg/dL (74-99); Lipase 117 U/L (23-300); Non-African American GFR(CKD) 87 (>60 ml/min/1.73 sqM); Potassium 4.2 mmol/L (3.5-5.1); Sodium 138 mmol/L (137-145); Total Protein 6.9 g/dL (6.3-8.2)
--- NOTE | 2025-01-12 23:57 | XR ---
EXAM: XR Abdomen, 1 View CLINICAL HISTORY: ITS.REASON XR Reason: abdominal pain TECHNIQUE: Frontal supine view of the abdomen/pelvis. COMPARISON: No relevant prior studies available. FINDINGS: Gastrointestinal tract: Unremarkable. No dilation. Bones/joints: Unremarkable. IMPRESSION: Nonobstructed bowel-gas pattern.
[2025-01-13 00:22] LABS: Bacteria,Urine Many /hpf; Bilirubin,Urine Negative (Negative); Blood,Urine Small (Negative); Color,Urine Light Yellow; Glucose,Urine (UA) Negative (Negative); Ketones,Urine Negative (Negative); Leukocyte Esterase,Urine Large (Negative); Mucus,Urine Rare /hpf; Nitrite,Urine Positive (Negative); PH, Urine 5.5 (5.0-8.0); Protein,Urine Negative (Negative); RBC,Urine 10 /hpf (0-5); Specific Gravity,Urine 1.018 (1.001-1.035); Squamous Epithelial Cell,Urine 5 /hpf (0-4); Urobilinogen,Urine <2.0 mg/dL (<2.0); WBC,Urine 45 /hpf (0-5)
[2025-01-13] MEDS: CEPHALEXIN 500MG STARTER PACK 4 CAP BTL PO STA (00:46)
[2025-01-13 00:51] VITALS: BP 149/89; PULSE 77; RESP 18; TEMP 98.6
== END 2025-01-13 00:52 | disposition home or self-care (01) ==
LOC: EC 20:59
DX: R10.12 Left upper quadrant pain (principal); N39.0 Urinary tract infection, site not specified; F17.200 Nicotine dependence, unspecified, uncomplicated
CPT/HCPCS: 36415; 74018; 80053; 81001; 82150; 83605; 83690; 84484; 85025; 87086; 93005; 99284

== ENCOUNTER → 2025-01-25 | Outpatient (CLI) | payer OTHER ==
--- NOTE | 2025-01-25 21:00 | XR ---
EXAMINATION TYPE: XR foot complete RT DATE OF EXAM: 01/25/2025 5:10 PM INDICATION: Patient age:Female; 54 years old; Reason for study: M79.671 PAIN IN RIGHT FOOT; PHH. pain COMPARISON: None TECHNIQUE: The right foot was examined in the AP, oblique, and lateral projections. FINDINGS: No evidence of any acute osseous pathology. No evidence of soft tissue swelling. Joints are preserve d. Incidental note is made of symphalangism of the fifth distal interphalangeal joint. Moderate sized plantar calcaneal enthesophyte. IMPRESSION: 1. No evidence of acute fracture. 2. Moderate sized plantar calcaneal enthesophyte. [facility], , 01/25/2025 8:57 PM
== END | disposition home or self-care (01) ==
LOC: RADXRMAIN 16:51
DX: M77.31 Calcaneal spur, right foot (principal)